=== PATIENT | female | born 1985 | race Caucasian/White ===

== ENCOUNTER 2017-07-04 15:58 | Emergency (ER) | payer BC ==
--- NOTE | 2017-07-04 16:20 | EDM.PDOC ---
ED HPI GENERAL MEDICAL PROBLEM - General Chief Complaint: Chest Pain Stated Complaint: CHEST PAIN Time Seen by Provider: 07/04/17 16:05 Source of Information: Reports: Patient History Limitations: Reports: No Limitations - History of Present Illness INITIAL COMMENTS - FREE TEXT/NARRATIVE: HISTORY AND PHYSICAL: History of present illness: Patient is a 32-year-old female who presents to the emergency room today with complaints of left-sided chest wall pain. She states approximately 3 or 4 days ago she started having left arm pain that started at the scapula and goes down the arm. Today she developed left upper chest wall pain which goes into the left shoulder and axilla which concerned her, so she presented to the emergency room. This chest pain does not radiate to the midsternum or into the back. She has been seeing a chiropractor for this left arm pain and has not had any relief. She states she has had multiple visits to a chiropractor for neck adjustments. She denies any associated symptoms such as shortness of breath, diaphoresis, nausea, vomiting. Denies any recent injury or trauma. Denies any personal history of cardiac or respiratory illness. Review of systems: As per history of present illness and below otherwise all systems reviewed and negative. Past medical history: As per history of present illness and as reviewed below otherwise noncontributory. Surgical history: As per history of present illness and as reviewed below otherwise noncontributory. Social history: No reported history of drug or alcohol abuse. Family history: As per history of present illness and as reviewed below otherwise noncontributory. Physical exam: Gen.: Well-developed and well-nourished 32-year-old female. Alert and oriented. HEENT: Atraumatic, normocephalic, pupils reactive, negative for conjunctival pallor or scleral icterus, mucous membranes moist, throat clear, neck supple, nontender, trachea midline. Lungs: Clear to auscultation, breath sounds equal bilaterally, chest nontender. Heart: S1S2, regular rate and rhythm without overt murmurs. Abdomen: Soft, nondistended, nontender. Negative for masses or hepatosplenomegaly. Negative for costovertebral tenderness. Pelvis: Stable nontender. Genitourinary: Deferred. Rectal: Deferred. Extremities: Atraumatic, moves all extremities per self with full range of motion without difficulty or deficit. Does have some muscular tenderness with deep palpation to the deltoid and trapezius muscle. She is negative for cords or calf pain. Neurovascular unremarkable. Neuro: Awake, alert, oriented. Cranial nerves II through XII unremarkable. Cerebellum unremarkable. Motor and sensory unremarkable throughout. Exam nonfocal. Although I do not feel that her symptoms are cardiac related, a cardiac workup is being done at this time. Patient voices understanding and is agreeable for this workup. EKG is normal with appropriate vital signs at this time. Lab work, EKG and chest x-ray are within normal limits. I will give the patient some Toradol as she is driving herself. We discussed treatment after discharge. Will prescribe a Medrol Dosepak, Voltaren, and Flexeril for home. We discussed the use and possible side effects of these medications. She voices understanding and is agreeable to plan of care. Will follow up with her primary caregiver in the next couple days. Diagnostics: CBC, CMP, troponin, EKG, one view chest Therapeutics: Toradol Impression: Muscular strain Chest pain, nonspecific Plan: 1. Please take the medications as prescribed. These symptoms along with her physical assessment or leg with a muscle spasm/strain of your shoulder/ trapezius. An anti-inflammatory has been prescribed, do not take any additional NSAIDs such as Aleve or ibuprofen with this medication. Medrol Dosepak is a steroid which will help with inflammation/irritation of nerves. Flexeril is a muscle relaxor which may make you drowsy, do not take it when you need to be functioning at work or with kids or when driving. 2. Follow-up with your primary caregiver in the next 1-2 days. Return to the ED as needed and as discussed. Definitive disposition and diagnosis as appropriate pending reevaluation and review of above. Onset: Today Associated Symptoms: Reports: Chest Pain (Left upper chest into the axilla and shoulder). Denies: Confusion, Cough, cough w sputum, Diaphoresis, Fever/Chills , Headaches, Loss of Appetite, Malaise, Nausea/Vomiting, Rash, Seizure, Shortness of Breath, Syncope, Weakness chest Pain Score (Numeric/FACES): 4 - Related Data Allergies Allergy/AdvReac Type Severity Reaction Status Date / Time No Known Allergies Allergy Verified 07/04/17 16:18 Home Meds: Home Meds Levothyroxine [Levothyroxine] 200 mcg PO DAILY 05/14/15 [History] Cyclobenzaprine [Flexeril] 10 mg PO BID PRN #16 tablet 07/04/17 [Rx] Diclofenac Sodium [Voltaren] 75 mg PO BIDMEALS PRN #20 tab.ec 07/04/17 [Rx] methylPREDNISolone [Medrol] 4 mg PO ASDIRECTED #1 dospk 07/04/17 [Rx] Past Medical History - Past Health History Medical/Surgical History: Denies 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 Sanon Neurological History: Reports: Migraines Endocrine/Metabolic History: Reports: Diabetes, Gestational Dermatologic History: Reports: Other (See Below) Other Dermatologic History: PUPS - Infectious Disease History Infectious Disease History: Reports: Chicken Pox, Scarlet Fever - Past Surgical History Other Female Surgeries/Procedures: spontaneous with retained product Social & Family History - Family History Cardiac: Reports: Angina, Hypertension, [place] - Tobacco Use Smoking Status *Q: Former Smoker Years of Tobacco use: 9 Packs/Tins Daily: 0.1 Used Tobacco, but Quit: Yes Month Tobacco Last Used: 07/2015 Second Hand Smoke Exposure: No - Alcohol Use Days Per Week of Alcohol Use: 0 - Recreational Drug Use Recreational Drug Use: No ED ROS GENERAL - Review of Systems Review Of Systems: ROS reveals no pertinent complaints other than HPI. ED EXAM, GENERAL - Physical Exam Exam: See Below (See dictation) Course - Vital Signs Last Recorded V/S: Last Vital Signs Temp 97.8 F 07/04/17 15:58 Pulse 95 07/04/17 15:58 Resp 18 07/04/17 15:58 BP 134/84 07/04/17 15:58 Pulse Ox 98 07/04/17 15:58 - Orders/Labs/Meds Orders: Active Orders 24 hr Category Date Time Status EKG Documentation Completion [RC] STAT Care 07/04/17 16:06 Active Chest 1V Frontal [CR] Stat Exams 07/04/17 16:06 Taken TSH [CHEM] Stat Lab 07/04/17 16:53 Ordered Labs: Laboratory Tests 07/04/17 07/04/17 Range/Units 16:01 16:01 WBC 11.81 H (4.0-11.0) K/uL RBC 4.73 (4.30-5.90) M/uL Hgb 14.1 (12.0-16.0) g/dL Hct 42.6 (36.0-46.0) % MCV 90.1 (80.0-98.0) fL MCH 29.8 (27.0-32.0) pg MCHC 33.1 (31.0-37.0) g/dL RDW Std Deviation 46.0 (28.0-62.0) fl RDW Coeff of Maribel 14 (11.0-15.0) % Plt Count 291 (150-400) K/uL MPV 10.50 (7.40-12.00) fL Neut % (Auto) 65.0 (48.0-80.0) % Lymph % (Auto) 26.5 (16.0-40.0) % [place] % (Auto) 6.4 (0.0-15.0) % Eos % (Auto) 1.8 (0.0-7.0) % Baso % (Auto) 0.3 (0.0-1.5) % Neut # (Auto) 7.7 H (1.4-5.7) K/uL Lymph # (Auto) 3.1 H (0.6-2.4) K/uL [place] # (Auto) 0.8 (0.0-0.8) K/uL Eos # (Auto) 0.2 (0.0-0.7) K/uL Baso # (Auto) 0.0 (0.0-0.1) K/uL Nucleated RBC % 0.0 /100WBC Nucleated RBCs # 0 K/uL Sodium 140 (136-146) mmol/L Potassium 3.8 (3.5-5.1) mmol/L Chloride 107 (98-110) mmol/L Carbon Dioxide 23 (21-31) mmol/L BUN 9 (6.0-23.0) mg/dL Creatinine 0.8 (0.6-1.5) mg/dL Est Cr Clr Drug Dosing TNP Estimated GFR (MDRD) > 60.0 ml/min Glucose 81 (60-110) mg/dL Calcium 10.1 (8.8-10.8) mg/dL Total Bilirubin 0.3 (0.1-1.5) mg/dL AST 18 (5-40) IU/L ALT 19 (8-54) IU/L Alkaline Phosphatase 67 (40-150) Troponin I < 0.10 (0.0-0.29) NG/ML Total Protein 8.3 H (6.0-8.0) g/dL Albumin 4.6 (3.5-5.0) g/dL Globulin 3.7 H (2.0-3.5) g/dL Albumin/Globulin Ratio 1.2 L (1.3-2.8) Meds: Medications Discontinued Medications Generic Name Dose Route Start Last Admin Trade Name Freq PRN Reason Stop Dose Admin Ketorolac Tromethamine 30 mg 07/04/17 16:52 Toradol IVPUSH 07/04/17 16:53 ONETIME ONE Departure - Departure Time of Disposition: 17:02 Disposition: Home, Self-Care 01 Clinical Impression: Nonspecific chest pain, Muscle strain - Discharge Information Prescriptions: Cyclobenzaprine [Flexeril] 10 mg PO BID PRN #16 tablet PRN Reason: Muscle Spasm Diclofenac Sodium [Voltaren] 75 mg PO BIDMEALS PRN #20 tab.ec PRN Reason: Pain methylPREDNISolone [Medrol] 4 mg PO ASDIRECTED #1 dospk Referrals: PCP,None [Primary Care Provider] - Forms: ED Department Discharge Additional Instructions: My general discharge The following information is given to patients seen in the emergency department who are being discharged to home. This information is to outline your options for follow-up care. We provide all patients seen in our emergency department with a follow-up referral. The need for follow-up, as well as the timing and circumstances, are variable depending upon the specifics of your emergency department visit. If you don't have a primary care physician on staff, we will provide you with a referral. We always advise you to contact your personal physician following an emergency department visit to inform them of the circumstance of the visit and for follow-up with them and/or the need for any referrals to a consulting specialist. The emergency department will also refer you to a specialist when appropriate. This referral assures that you have the opportunity for follow-up care with a specialist. All of these measure are taken in an effort to provide you with optimal care, which includes your follow-up. Under all circumstances we always encourage you to contact your private physician who remains a resource for coordinating your care. When calling for follow-up care, please make the office aware that this follow-up is from your recent emergency room visit. If for any reason you are refused follow-up, please contact the [facility] Emergency Department at and asked to speak to the emergency department charge nurse. [facility] [address] [place] [id number] 1. Please take the medications as prescribed. These symptoms along with her physical assessment or leg with a muscle spasm/strain of your shoulder/ trapezius. An anti-inflammatory has been prescribed, do not take any additional NSAIDs such as Aleve or ibuprofen with this medication. Medrol Dosepak is a steroid which will help with inflammation/irritation of nerves. Flexeril is a muscle relaxor which may make you drowsy, do not take it when you need to be functioning at work or with kids or when driving. These medications have been sent to pharmacy and are available for pickup. 2. Follow-up with your primary caregiver in the next 1-2 days. Return to the ED as needed and as discussed. - My Orders Last 24 Hours: My Active Orders 07/04/17 16:06 EKG Documentation Completion [RC] STAT Chest 1V Frontal [CR] Stat 07/04/17 16:53 TSH [CHEM] Stat - Assessment/Plan Last 24 Hours: My Active Orders 07/04/17 16:06 EKG Documentation Completion [RC] STAT Chest 1V Frontal [CR] Stat 07/04/17 16:53 TSH [CHEM] Stat
[2017-07-04 16:39] LABS: CHLORIDE,CL 107 mmol/L (98-110); SODIUM,NA 140 mmol/L (136-146)
[2017-07-04] MEDS ORDERED: Ketorolac 30 MG/ML SDV IVPUSH ONE (16:52)
[2017-07-04 17:55] VITALS: BP 120/80
--- NOTE | 2017-07-05 09:06 | CR ---
EXAM DATE: 07/04/17 PATIENT'S AGE: 32 Patient: ALYSSA TAVAREZ Facility: [place], [place] Site . Site : 1985 Study: XRay Chest [id number]/20/2017 4:29:51 PM Ordering Physician: Doctor Krishnan Final Report: HISTORY: Chest pain. FINDINGS: AP portable chest radiograph demonstrates EKG leads overlie the thorax. The cardiac silhouette is normal. Pulmonary vasculature and opal are normal. No lobar consolidation or pleural effusion is seen. Bony structures are unremarkable. IMPRESSION: No acute cardiopulmonary disease. Dictated by Martha Hess MD @ 07/04/2017 4:46:14 PM Dictated by: Martha Hess MD @ 07/04/2017 16:46:21 (Electronic Signature) Report Signed by Proxy. [facility]
== END 2017-07-04 17:52 | disposition home or self-care (01) ==
LOC: MW.ED 15:58
DX: S46.812A Strain of other muscles, fascia and tendons at shoulder and upper arm level, left arm, initial encounter (principal); S29.012A Strain of muscle and tendon of back wall of thorax, initial encounter; R07.89 Other chest pain; Z79.899 Other long term (current) drug therapy; X58.XXXA Exposure to other specified factors, initial encounter; Z87.891 Personal history of nicotine dependence
CPT/HCPCS: 36415; 71010; 80053; 84443; 84484; 85025; 96374; 99285; J1885; 99283

== ENCOUNTER 2017-09-06 20:47 | Emergency (ER) | payer BC ==
--- NOTE | 2017-09-06 20:51 | EDM.PDOC ---
ED HPI GENERAL MEDICAL PROBLEM - General Stated Complaint: CHEST PAIN Time Seen by Provider: 09/06/17 20:50 Source of Information: Reports: Patient History Limitations: Reports: No Limitations - History of Present Illness INITIAL COMMENTS - FREE TEXT/NARRATIVE: HISTORY AND PHYSICAL: History of present illness: Patient is a 32-year-old female who presents to the emergency room today with complaints of midsternal chest pain 2 months. She states that she has intermittent chest pain that goes up the esophagus with some nausea and "tingling down the left arm". She states nothing precipitates this from occurring. Nothing makes this better or worse. She reports she has doctored for this in the past and was told it was muscular strain/spasm. Denies any abdominal pain, vomiting, diarrhea/constipation. Review of systems: As per history of present illness and below otherwise all systems reviewed and negative. Past medical history: As per history of present illness and as reviewed below otherwise noncontributory. Surgical history: As per history of present illness and as reviewed below otherwise noncontributory. Social history: No reported history of drug or alcohol abuse. Family history: As per history of present illness and as reviewed below otherwise noncontributory. Physical exam: General: Well developed and well-nourished 32-year-old female. Alert and oriented. Nontoxic appearing and in no acute distress. HEENT: Atraumatic, normocephalic, pupils reactive, negative for conjunctival pallor or scleral icterus, mucous membranes moist, throat clear, neck supple, nontender, trachea midline. Lungs: Clear to auscultation, breath sounds equal bilaterally, chest nontender. Heart: S1S2, regular rate and rhythm Abdomen: Soft, nondistended, obese, nontender. Negative for masses or hepatosplenomegaly. Negative for costovertebral tenderness. Pelvis: Stable nontender. Genitourinary: Deferred. Rectal: Deferred. Extremities: Atraumatic, negative for cords or calf pain. Neurovascular unremarkable. Neuro: Awake, alert, oriented. Cranial nerves II through XII unremarkable. Cerebellum unremarkable. Motor and sensory unremarkable throughout. Exam nonfocal. CBC, CMP, troponin, EKG, serum are negative. Chest x-ray shows no acute findings, infiltrates or pneumonia. Did have some relief with the GI cocktail. Encouraged her to start an [id number] antacid/PPI. Diagnostics: CBC, CMP, troponin, EKG, one view chest Therapeutics: GI cocktail Impression: Chest pain, nonspecific GERD Plan: 1. Please start Protonix once daily before breakfast 2. Please follow-up with your medical provider in the next 1-2 days. Return to the ED as needed and as discussed. Definitive disposition and diagnosis as appropriate pending reevaluation and review of above. 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 Sanon Neurological History: Reports: Migraines Endocrine/Metabolic History: Reports: Diabetes, Gestational Dermatologic History: Reports: Other (See Below) Other Dermatologic History: PUPS - Infectious Disease History Infectious Disease History: Reports: Chicken Pox, Scarlet Fever - Past Surgical History Other Female Surgeries/Procedures: spontaneous with retained product Social & Family History - Family History Family Medical History: Noncontributory Cardiac: Reports: Angina, Hypertension, [place] - Tobacco Use Smoking Status *Q: Former Smoker Years of Tobacco use: 9 Packs/Tins Daily: 0.1 Used Tobacco, but Quit: Yes Month Tobacco Last Used: 07/2015 Second Hand Smoke Exposure: No - Alcohol Use Days Per Week of Alcohol Use: 0 - Recreational Drug Use Recreational Drug Use: No ED ROS GENERAL - Review of Systems Review Of Systems: ROS reveals no pertinent complaints other than HPI. ED EXAM, GENERAL - Physical Exam Exam: See Below (See dictation) Course - Vital Signs Last Recorded V/S: Last Vital Signs Temp 97.2 F 09/06/17 20:50 Pulse 89 09/06/17 20:50 Resp 18 09/06/17 20:50 BP 147/77 H 09/06/17 20:50 Pulse Ox 98 09/06/17 20:50 - Orders/Labs/Meds Orders: Active Orders 24 hr Category Date Time Status EKG 12 Lead [EKG Documentation Completion] [RC] STAT Care 09/06/17 20:49 Active Chest 1V Frontal [CR] Stat Exams 09/06/17 20:49 Ordered COMPREHENSIVE METABOLIC PN,CMP [CHEM] Stat Lab 09/06/17 20:55 Results TROPONIN I [CHEM] Stat Lab 09/06/17 20:55 Results Labs: Laboratory Tests 09/06/17 09/06/17 09/06/17 Range/Units 20:55 20:55 20:55 WBC 8.95 (4.0-11.0) K/uL RBC 4.61 (4.30-5.90) M/uL Hgb 13.6 (12.0-16.0) g/dL Hct 41.1 (36.0-46.0) % MCV 89.2 (80.0-98.0) fL MCH 29.5 (27.0-32.0) pg MCHC 33.1 (31.0-37.0) g/dL RDW Std Deviation 41.3 (28.0-62.0) fl RDW Coeff of Maribel 13 (11.0-15.0) % Plt Count 293 (150-400) K/uL MPV 10.20 (7.40-12.00) fL Neut % (Auto) 58.5 (48.0-80.0) % Lymph % (Auto) 33.1 (16.0-40.0) % [place] % (Auto) 5.7 (0.0-15.0) % Eos % (Auto) 2.1 (0.0-7.0) % Baso % (Auto) 0.6 (0.0-1.5) % Neut # (Auto) 5.2 (1.4-5.7) K/uL Lymph # (Auto) 3.0 H (0.6-2.4) K/uL [place] # (Auto) 0.5 (0.0-0.8) K/uL Eos # (Auto) 0.2 (0.0-0.7) K/uL Baso # (Auto) 0.1 (0.0-0.1) K/uL Nucleated RBC % 0.0 /100WBC Nucleated RBCs # 0 K/uL Sodium 140 (136-146) mmol/L Potassium 4.0 (3.5-5.1) mmol/L Chloride 107 (98-110) mmol/L Carbon Dioxide 23 (21-31) mmol/L BUN 13 (6.0-23.0) mg/dL Creatinine 0.7 (0.6-1.5) mg/dL Est Cr Clr Drug Dosing TNP Estimated GFR (MDRD) > 60.0 ml/min Glucose 97 (60-110) mg/dL Calcium 9.9 (8.8-10.8) mg/dL Total Bilirubin 0.2 (0.1-1.5) mg/dL AST 13 (5-40) IU/L ALT 17 (8-54) IU/L Alkaline Phosphatase 62 (40-150) Total Protein 7.4 (6.0-8.0) g/dL Albumin 4.3 (3.5-5.0) g/dL Globulin 3.1 (2.0-3.5) g/dL Albumin/Globulin Ratio 1.4 (1.3-2.8) HCG, Qual NEGATIVE (NEG) H. pylori IgG Antibody NEGATIVE (NEG) Meds: Medications Discontinued Medications Generic Name Dose Route Start Last Admin Trade Name Freq PRN Reason Stop Dose Admin Al Hydroxide/Mg Hydroxide 15 0 ml 09/06/17 20:56 09/06/17 21:05 ml/ Lidocaine HCl 5 ml PO 09/06/17 20:57 1 each ONETIME ONE Administration Departure - Departure Time of Disposition: 21:34 Disposition: Home, Self-Care 01 Clinical Impression: Nonspecific chest pain GERD (gastroesophageal reflux disease) Qualifiers: Esophagitis presence: without esophagitis Qualified Code(s): K21.9 - Gastro- esophageal reflux disease without esophagitis Referrals: PCP,None [Primary Care Provider] - Additional Instructions: My general discharge The following information is given to patients seen in the emergency department who are being discharged to home. This information is to outline your options for follow-up care. We provide all patients seen in our emergency department with a follow-up referral. The need for follow-up, as well as the timing and circumstances, are variable depending upon the specifics of your emergency department visit. If you don't have a primary care physician on staff, we will provide you with a referral. We always advise you to contact your personal physician following an emergency department visit to inform them of the circumstance of the visit and for follow-up with them and/or the need for any referrals to a consulting specialist. The emergency department will also refer you to a specialist when appropriate. This referral assures that you have the opportunity for follow-up care with a specialist. All of these measure are taken in an effort to provide you with optimal care, which includes your follow-up. Under all circumstances we always encourage you to contact your private physician who remains a resource for coordinating your care. When calling for follow-up care, please make the office aware that this follow-up is from your recent emergency room visit. If for any reason you are refused follow-up, please contact the [facility] Emergency Department at and asked to speak to the emergency department charge nurse. [facility] [address] [place] [address] 1. Please start Protonix 40 mg once daily 30 minutes before breakfast. 2. Please follow-up with your medical provider in the next 1-2 days. Return to the ED as needed and as discussed. - My Orders Last 24 Hours: My Active Orders 09/06/17 20:49 EKG 12 Lead [EKG Documentation Completion] [RC] STAT Chest 1V Frontal [CR] Stat 09/06/17 20:55 COMPREHENSIVE METABOLIC PN,CMP [CHEM] Stat TROPONIN I [CHEM] Stat - Assessment/Plan Last 24 Hours: My Active Orders 09/06/17 20:49 EKG 12 Lead [EKG Documentation Completion] [RC] STAT Chest 1V Frontal [CR] Stat 09/06/17 20:55 COMPREHENSIVE METABOLIC PN,CMP [CHEM] Stat TROPONIN I [CHEM] Stat
[2017-09-06] MEDS ORDERED: Alum Hydrox/Mag Hydrox/Simeth 15 ML, Lidocaine 2% 5 ML PO ONE ×2 (20:56)
[2017-09-06 21:27] LABS: CHLORIDE,CL 107 mmol/L (98-110); SODIUM,NA 140 mmol/L (136-146)
[2017-09-06 22:22] VITALS: BP 104/75
--- NOTE | 2017-09-07 16:00 | CR ---
EXAM DATE: 09/06/17 PATIENT'S AGE: 32 Patient: ALYSSA TAVAREZ Facility: [place], [place] Site . Site : 1985 Study: XRay Chest [id number]/22/2018 9:38:15 PM Ordering Physician: Doctor Krishnan Final Report: HISTORY: Chest pain. FINDINGS: AP portable chest radiograph is compared with 04 July 2017. The cardiac silhouette is normal. Pulmonary vasculature is free of cephalization. No lobar consolidation or pleural effusion is seen. Bony structures are within normal limits. IMPRESSION: No acute cardiopulmonary disease. Dictated by Martha Hess MD @ 09/06/2017 9:43:21 PM Dictated by: Martha Hess MD @ 09/06/2017 21:43:53 (Electronic Signature) Report Signed by Proxy. [facility]
== END 2017-09-06 22:21 | disposition home or self-care (01) ==
LOC: MW.ED 20:47
DX: K21.9 Gastro-esophageal reflux disease without esophagitis (principal); Z79.899 Other long term (current) drug therapy; Z87.891 Personal history of nicotine dependence
CPT/HCPCS: 36415; 71045; 80053; 84484; 84703; 85025; 86677; 99285; A9270; 99284

== ENCOUNTER 2018-04-11 18:18 | Emergency (ER) | payer BC ==
--- NOTE | 2018-04-11 19:06 | EDM.PDOC ---
ED HPI GENERAL MEDICAL PROBLEM - General Chief Complaint: ENT Problem Stated Complaint: RT SIDE OF FACE IS SWOLLON AND EYE IS TWITCHING Time Seen by Provider: 04/11/18 19:05 Source of Information: Reports: Patient History Limitations: Reports: No Limitations - History of Present Illness INITIAL COMMENTS - FREE TEXT/NARRATIVE: HISTORY AND PHYSICAL: History of present illness: 32-year-old female presenting to emergency department with chief complaint of right facial swelling and pain 4 days. Patient states that on Sunday approximate 4 days ago she noticed that she had some mild right facial swelling. States that she saw her chiropractor that afternoon and had her neck adjusted but does not know if it's related. Today one of her coworkers mentioned that her right jaw looked swollen so she came to the emergency department for further evaluation. She denies any associated fever , chills, abdominal pain, dysuria, or other signs of systemic infection. She does have a mild sore throat and some associated nausea today. She does have a history of chronic neck pain as well as history of unexplained lightheadedness which has been investigated by her primary care provider Dr. Mccarthy. Currently she denies any chest pain, palpitations, shortness of breath, syncopal episodes , focal neurologic deficits. On exam there is mild right-sided facial swelling along the jawline with associated submandibular painful lymphadenopathy. It is tender to palpation. On oral exam tooth #31 has poor dentition with surrounding erythema. Bilateral tonsils and posterior pharynx are erythematous and mildly swollen. Review of systems: As per history of present illness and below otherwise all systems reviewed and negative. Past medical history: As per history of present illness and as reviewed below otherwise noncontributory. Surgical history: As per history of present illness and as reviewed below otherwise noncontributory. Social history: No reported history of drug or alcohol abuse. Family history: As per history of present illness and as reviewed below otherwise noncontributory. Physical exam: See above H&P HEENT: Atraumatic, normocephalic, pupils reactive, negative for conjunctival pallor or scleral icterus, mucous membranes moist, mild swelling and erythema, neck supple, nontender, trachea midline. Lungs: Clear to auscultation, breath sounds equal bilaterally, chest nontender. Heart: S1S2, regular, negative for clicks, rubs, or JVD. Abdomen: Soft, nondistended, nontender. Negative for masses or hepatosplenomegaly. Negative for costovertebral tenderness. Pelvis: Stable nontender. Genitourinary: Deferred. Rectal: Deferred. Extremities: Atraumatic, negative for cords or calf pain. Neurovascular unremarkable. Neuro: Awake, alert, oriented. Cranial nerves II through XII unremarkable. Cerebellum unremarkable. Motor and sensory unremarkable throughout. Exam nonfocal. Diagnostics: Rapid strep Therapeutics: Augmentin 875 mg x 7 days Impression: right jaw pain right jaw swelling Dental abscess Plan: Rapid strep was negative. Most likely patient has beginnings of a dental abscess. Did give the patient a prescription for Augmentin and instructed her to follow-up with her dentist. In addition I did give her dental balls for symptomatically relief. Instructed her to follow-up with her primary care provider and return to emergency department if any new or worsening symptoms. Definitive disposition and diagnosis as appropriate pending reevaluation and review of above. 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 Sanon Musculoskeletal History: Reports: None Neurological History: Reports: Migraines Psychiatric History: Reports: Anxiety Endocrine/Metabolic History: Reports: Diabetes, Gestational Hematologic History: Reports: None Immunologic History: Reports: None Oncologic (Cancer) History: Reports: None Dermatologic History: Reports: Other (See Below) Other Dermatologic History: PUPS - Infectious Disease History Infectious Disease History: Reports: Chicken Pox - Past Surgical History Head Surgeries/Procedures: Reports: None Other Female Surgeries/Procedures: spontaneous with retained product Social & Family History - Family History Family Medical History: Noncontributory Cardiac: Reports: Angina, Hypertension, [place] - Tobacco Use Smoking Status *Q: Current Every Day Smoker Years of Tobacco use: 8 Packs/Tins Daily: 0.5 - Caffeine Use Caffeine Use: Reports: Coffee, Soda, Tea - Recreational Drug Use Recreational Drug Use: No ED ROS GENERAL - Review of Systems Review Of Systems: ROS reveals no pertinent complaints other than HPI. ED EXAM, GENERAL - Physical Exam Exam: See Below Course - Vital Signs Last Recorded V/S: Last Vital Signs Temp 98.1 F 04/11/18 18:46 Pulse 93 04/11/18 18:46 Resp 20 04/11/18 18:46 BP 124/83 04/11/18 18:46 Pulse Ox 96 04/11/18 18:46 - Orders/Labs/Meds Orders: Active Orders 24 hr Category Date Time Status CULTURE STREP A CONFIRMATION [] Stat Lab 04/11/18 19:36 Results STREP SCRN A RAPID W CULT CONF [RM] Stat Lab 04/11/18 19:36 Results Meds: Medications Discontinued Medications Generic Name Dose Route Start Last Admin Trade Name Freq PRN Reason Stop Dose Admin Benzocaine 2 each 04/11/18 19:28 Hurricaine One 20% MUCMEM 04/11/18 19:29 ONETIME ONE Lidocaine HCl 15 ml 04/11/18 19:28 Xylocaine 2% Viscous PO 04/11/18 19:29 ONETIME ONE Departure - Departure Time of Disposition: 20:01 Disposition: Home, Self-Care 01 Condition: Good Clinical Impression: Dental abscess - Discharge Information Referrals: PCP,None [Primary Care Provider] - Forms: ED Department Discharge Additional Instructions: My general discharge The following information is given to patients seen in the emergency department who are being discharged to home. This information is to outline your options for follow-up care. We provide all patients seen in our emergency department with a follow-up referral. The need for follow-up, as well as the timing and circumstances, are variable depending upon the specifics of your emergency department visit. If you don't have a primary care physician on staff, we will provide you with a referral. We always advise you to contact your personal physician following an emergency department visit to inform them of the circumstance of the visit and for follow-up with them and/or the need for any referrals to a consulting specialist. The emergency department will also refer you to a specialist when appropriate. This referral assures that you have the opportunity for follow-up care with a specialist. All of these measure are taken in an effort to provide you with optimal care, which includes your follow-up. Under all circumstances we always encourage you to contact your private physician who remains a resource for coordinating your care. When calling for follow-up care, please make the office aware that this follow-up is from your recent emergency room visit. If for any reason you are refused follow-up, please contact the [facility] Emergency Department at and asked to speak to the emergency department charge nurse. [facility] Primary Care [address] [place] [phone] Please follow-up with your dentist as we discussed. Take medication as prescribed. Return to emergency department if any new or worsening symptoms as we discussed. - My Orders Last 24 Hours: My Active Orders 04/11/18 19:36 CULTURE STREP A CONFIRMATION [RM] Stat STREP SCRN A RAPID W CULT CONF [RM] Stat - Assessment/Plan Last 24 Hours: My Active Orders 04/11/18 19:36 CULTURE STREP A CONFIRMATION [RM] Stat STREP SCRN A RAPID W CULT CONF [RM] Stat
[2018-04-11] MEDS ORDERED: Lidocaine 2% Viscous Solution 15 ML Cup PO ONE (19:28)
[2018-04-11] MEDS ORDERED: Benzocaine 20% Topical Spray UD MUCMEM ONE (19:28)
[2018-04-11 20:01] VITALS: BP 140/91
== END 2018-04-11 20:09 | disposition home or self-care (01) ==
LOC: MW.ED 18:18
DX: K04.7 Periapical abscess without sinus (principal); F17.210 Nicotine dependence, cigarettes, uncomplicated
CPT/HCPCS: 87081; 87880; 99283; A9270

== ENCOUNTER 2019-01-25 19:17 | Emergency (ER) | payer BC ==
[2019-01-25] MEDS ORDERED: Sodium Chloride 0.9% 10 ML Syringe FLUSH PRN (19:44)
[2019-01-25] MEDS ORDERED: Sodium Chloride 0.9% 2.5 ML Syringe FLUSH PRN (19:44)
--- NOTE | 2019-01-25 19:48 | EDM.PDOC ---
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 Walker in the office who presented earlier today with cramping and bleeding that started earlier this morning. The patient was seen about 9:30 this morning and had said at that time she was cramping and having some spotting and then on the way here to the ER started passing clots and large amount of blood and in the ED was having heavy bleeding. Labs were done which revealed a hemoglobin of 13.6, A+ blood type and a serum quantitative hCG of 31,000 525. Ultrasound was done which revealed no intrauterine or ectopic and there was mild thickening of the endometrial stripe with no endometrial fluid collections. Dr. Walker was consulted via phone by the provider and he recommended a dose of Methergine which was given. According to the provider he was aware of the heavy bleeding. Patient now presents to the ED saying that after she received a Methergine here the bleeding did slow down and she was feeling less uncomfortable and then a few hours ago she started bleeding heavily again using 2 pads per hour and passing numerous clots. She says she is still having cramping but it is manageable. The patient says that she feels lightheaded but she is not passing out and she has no chest pain or shortness of breath. She is not having any upper abdominal pain just the pelvic cramping which she had earlier and she has no flank pain. Review of systems: As per history of present illness and below otherwise all systems reviewed and negative. Past medical history: As per history of present illness and as reviewed below otherwise noncontributory. Surgical history: As per history of present illness and as reviewed below otherwise noncontributory. Social history: No reported history of drug or alcohol abuse. Family history: As per history of present illness and as reviewed below otherwise noncontributory. Physical exam: General: Well-developed well-nourished female who is nontoxic and vital signs are noted by me, on my evaluation her heart rate is 126 and in triage it was 136. HEENT: Atraumatic, normocephalic, pupils reactive, negative for conjunctival pallor or scleral icterus, mucous membranes moist, throat clear, neck supple, nontender, trachea midline. Lungs: Clear to auscultation, breath sounds equal bilaterally, chest nontender. Heart: S1S2, regular rhythm and tachycardic rate on my evaluation no overt murmurs Abdomen: Soft, nondistended, some mild suprapubic tenderness is appreciated without rebound or guarding Negative for masses or hepatosplenomegaly. Pelvis: Stable nontender. Genitourinary: External genitalia are within normal limits and there is copious blood and clots in the vault. Once the clots were cleared proximal of conception could clearly be seen filling the vaginal vault emerging from the cervix. These were gently teased loose and placed in a specimen cup. Once all tissue was removed cervix was reevaluated and now is small and closed and there is only a slight trickle of blood per os. The uterus is slightly bulky but nontender and there is no adnexal tenderness. The bimanual is difficult due to the patient's body habitus. Rectal: Deferred. Extremities: Atraumatic, full range of motion and no pedal edema. Neurovascular unremarkable. Neuro: Awake, alert, oriented. Cranial nerves II through XII unremarkable. Cerebellum unremarkable. Motor and sensory unremarkable throughout. Exam nonfocal. Diagnostics: CBC, products of conception to pathology Earlier a quantitative hCG was done which was 31,525 and her blood type is a positive Therapeutics: IV fluids, Methergine IM per Dr. Walker, Toradol Patient's heart rate is improving with IV fluids and is now 113 Please see exam above for removal of products of conception at bedside. 2021: Case was discussed with Dr. Walker and he is aware of the patient's presentation and my physical exam. As the os is now closed he would like another dose of Methergine 0.2 mg IM to be given and he would like her to be watched here for bleeding and resolution of her tachycardia. He is aware of the CBC results compared to earlier. The patient is also been made aware of this conversation and the care plan. She is comfortable with that Patient continues to do well and has just finished her second liter of IV fluids. I given her some Toradol for some cramping. We are going to get her up and assess her bleeding and discuss disposition home. 2124: Heart rate is now 98-99 and the patient got up and did have some bleeding going to the bathroom but is not passing significant blood or clots. We'll plan on discharge home. Impression: Complete AB Definitive disposition and diagnosis as appropriate pending reevaluation and review of above. 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 incompetent cervix Musculoskeletal History: Reports: None Neurological History: Reports: Migraines Psychiatric History: Reports: Anxiety Endocrine/Metabolic History: Reports: Diabetes, Gestational Hematologic History: Reports: None Immunologic History: Reports: None Oncologic (Cancer) History: Reports: None Dermatologic History: Reports: Other (See Below) Other Dermatologic History: PUPS - Infectious Disease History Infectious Disease History: Reports: Chicken Pox - Past Surgical History Head Surgeries/Procedures: Reports: None Other Female Surgeries/Procedures: spontaneous with retained product Social & Family History - Family History Family Medical History: Noncontributory Cardiac: Reports: Angina, Hypertension, [place] - Caffeine Use Caffeine Use: Reports: Coffee, Soda, Tea ED ROS GENERAL - Review of Systems Review Of Systems: ROS reveals no pertinent complaints other than HPI. ED EXAM, GENERAL - Physical Exam Exam: See Below (See dictation) Course - Vital Signs Last Recorded V/S: Last Vital Signs Temp 36.9 C 01/25/19 20:30 Pulse 98 01/25/19 21:13 Resp 18 01/25/19 21:13 BP 126/72 01/25/19 21:13 Pulse Ox 100 01/25/19 21:13 - Orders/Labs/Meds Orders: Active Orders 24 hr Category Date Time Status Sodium Chloride 0.9% [Normal Saline] 1,000 ml Med 01/25/19 20:36 Active IV .Bolus Sodium Chloride 0.9% [Saline Flush] Med 01/25/19 19:44 Active 10 ml FLUSH ASDIRECTED PRN Sodium Chloride 0.9% [Saline Flush] Med 01/25/19 19:44 Active 2.5 ml FLUSH ASDIRECTED PRN Saline Lock Insert [OM.PC] Stat Oth 01/25/19 19:44 Ordered Medication Orders Sodium Chloride (Normal Saline) 1,000 mls @ 999 mls/hr IV .Bolus ONE Stop: 01/25/19 21:36 Last Admin: 01/25/19 20:38 Dose: 999 mls/hr Sodium Chloride (Saline Flush) 10 ml FLUSH ASDIRECTED PRN PRN Reason: Keep Vein Open Sodium Chloride (Saline Flush) 2.5 ml FLUSH ASDIRECTED PRN PRN Reason: Keep Vein Open Labs: Laboratory Tests 01/25/19 Range/Units 19:54 WBC 11.84 H (4.0-11.0) K/uL RBC 3.78 L (4.30-5.90) M/uL Hgb 10.9 L (12.0-16.0) g/dL Hct 33.3 L (36.0-46.0) % MCV 88.1 (80.0-98.0) fL MCH 28.8 (27.0-32.0) pg MCHC 32.7 (31.0-37.0) g/dL RDW Std Deviation 44.8 (28.0-62.0) fl RDW Coeff of Maribel 14 (11.0-15.0) % Plt Count 334 (150-400) K/uL MPV 10.00 (7.40-12.00) fL Neut % (Auto) 78.2 (48.0-80.0) % Lymph % (Auto) 15.7 L (16.0-40.0) % [place] % (Auto) 3.2 (0.0-15.0) % Eos % (Auto) 2.8 (0.0-7.0) % Baso % (Auto) 0.1 (0.0-1.5) % Neut # (Auto) 9.3 H (1.4-5.7) K/uL Lymph # (Auto) 1.9 (0.6-2.4) K/uL [place] # (Auto) 0.4 (0.0-0.8) K/uL Eos # (Auto) 0.3 (0.0-0.7) K/uL Baso # (Auto) 0.0 (0.0-0.1) K/uL Nucleated RBC % 0.0 /100WBC Nucleated RBCs # 0 K/uL Meds: Medications Generic Name Dose Route Start Last Admin Trade Name Freq PRN Reason Stop Dose Admin Sodium Chloride 1,000 mls @ 999 mls/hr 01/25/19 20:36 01/25/19 20:38 Normal Saline IV 01/25/19 21:36 999 mls/hr .Bolus ONE Administration Sodium Chloride 10 ml 01/25/19 19:44 Saline Flush FLUSH ASDIRECTED PRN Keep Vein Open Sodium Chloride 2.5 ml 01/25/19 19:44 Saline Flush FLUSH ASDIRECTED PRN Keep Vein Open Discontinued Medications Generic Name Dose Route Start Last Admin Trade Name Freq PRN Reason Stop Dose Admin Sodium Chloride 1,000 mls @ 999 mls/hr 01/25/19 19:57 01/25/19 20:05 Normal Saline IV 01/25/19 20:57 999 mls/hr STAT ONE Administration Ketorolac Tromethamine 30 mg 01/25/19 21:05 01/25/19 21:10 Toradol IVPUSH 01/25/19 21:06 30 mg ONETIME ONE Administration Methylergonovine Maleate 0.2 mg 01/25/19 20:26 01/25/19 20:46 Methergine IM 01/25/19 20:27 0.2 mg ONETIME ONE Administration Departure - Departure Time of Disposition: 21:27 Disposition: Home, Self-Care 01 Condition: Good Clinical Impression: Complete - Discharge Information Referrals: PCP,None [Primary Care Provider] - Forms: ED Department Discharge Additional Instructions: The following information is given to patients seen in the emergency department who are being discharged to home. This information is to outline your options for follow-up care. We provide all patients seen in our emergency department with a follow-up referral. The need for follow-up, as well as the timing and circumstances, are variable depending upon the specifics of your emergency department visit. If you don't have a primary care physician on staff, we will provide you with a referral. We always advise you to contact your personal physician following an emergency department visit to inform them of the circumstance of the visit and for follow-up with them and/or the need for any referrals to a consulting specialist. The emergency department will also refer you to a specialist when appropriate. This referral assures that you have the opportunity for followup care with a specialist. All of these measure are taken in an effort to provide you with optimal care, which includes your followup. Under all circumstances we always encourage you to contact your private physician who remains a resource for coordinating your care. When calling for followup care, please make the office aware that this follow-up is from your recent emergency room visit. If for any reason you are refused follow-up, please contact the [facility] emergency department at and ask to speak to the emergency department charge nurse. [facility] [address] [address] Rest and push hydration. Use [id number] meds for cramping and pain as you choose. Please continue to monitor your bleeding and connect with Dr. Walker for any problems or return to ER as needed and as discussed. Please also call the office on Sunday morning to schedule a follow-up appointment with Dr. Walker. Expect bleeding and some clots for the next 1-2 days which should slowly be improving - My Orders Last 24 Hours: My Active Orders 01/25/19 19:44 Sodium Chloride 0.9% [Saline Flush] 10 ml FLUSH ASDIRECTED PRN Sodium Chloride 0.9% [Saline Flush] 2.5 ml FLUSH ASDIRECTED PRN Saline Lock Insert [OM.PC] Stat 01/25/19 20:36 Sodium Chloride 0.9% [Normal Saline] 1,000 ml IV .Bolus - Assessment/Plan Last 24 Hours: My Active Orders 01/25/19 19:44 Sodium Chloride 0.9% [Saline Flush] 10 ml FLUSH ASDIRECTED PRN Sodium Chloride 0.9% [Saline Flush] 2.5 ml FLUSH ASDIRECTED PRN Saline Lock Insert [OM.PC] Stat 01/25/19 20:36 Sodium Chloride 0.9% [Normal Saline] 1,000 ml IV .Bolus
[2019-01-25] MEDS ORDERED: Sodium Chloride 0.9% 1,000 ML IV ONE ×2 (19:57→20:36)
[2019-01-25] MEDS ORDERED: Methylergonovine 0.2 MG/1 ML Amp IM ONE (20:26)
[2019-01-25] MEDS ORDERED: Ketorolac 30 MG/ML SDV IVPUSH ONE (21:05)
[2019-01-25 21:27] VITALS: BP 102/52
== END 2019-01-25 21:36 | disposition home or self-care (01) ==
LOC: MW.ED 19:17
DX: O03.9 Complete or unspecified spontaneous abortion without complication (principal); Z79.899 Other long term (current) drug therapy
CPT/HCPCS: 36415; 85025; 96361; 96372; 96374; 99284; J1885; J2210; J7040; 76815; 76815-26; 84702; 86900; 86901; 88305; 96360

== ENCOUNTER 2019-02-02 22:10 | Emergency (ER) | payer BC ==
[2019-02-02] MEDS ORDERED: Ketorolac 30 MG/ML SDV IVPUSH ONE (22:14)
--- NOTE | 2019-02-02 22:23 | EDM.PDOC ---
ED HPI GENERAL MEDICAL PROBLEM - General Chief Complaint: Chest Pain Stated Complaint: CHEST PAIN Time Seen by Provider: 02/02/19 22:18 - History of Present Illness INITIAL COMMENTS - FREE TEXT/NARRATIVE: HISTORY AND PHYSICAL: History of present illness: Patient 33-year-old female presents with chest pain she had a recent miscarriage and was also evaluated recently for lower leg pain and had a venous Doppler that was negative on January 29. There's been no associated shortness of breath palpitations or diaphoresis she does complain of chest pain is vaguely described with associated left arm pain she does acknowledge anxiety. Review of systems: As per history of present illness and below otherwise all systems reviewed and negative. Past medical history: As per history of present illness and as reviewed below otherwise noncontributory. Surgical history: As per history of present illness and as reviewed below otherwise noncontributory. Social history: No reported history of drug or alcohol abuse. Family history: As per history of present illness and as reviewed below otherwise noncontributory. Physical exam: HEENT: Atraumatic, normocephalic, pupils reactive, negative for conjunctival pallor or scleral icterus, mucous membranes moist, throat clear, neck supple, nontender, trachea midline. Lungs: Clear to auscultation, breath sounds equal bilaterally, chest nontender. Heart: S1S2, regular, negative for clicks, rubs, or JVD. Abdomen: Soft, nondistended, nontender. Negative for masses or hepatosplenomegaly. Negative for costovertebral tenderness. Pelvis: Stable nontender. Genitourinary: Deferred. Rectal: Deferred. Extremities: Atraumatic, negative for cords or calf pain. Neurovascular unremarkable. Neuro: Awake, alert, oriented. Cranial nerves II through XII unremarkable. Cerebellum unremarkable. Motor and sensory unremarkable throughout. Exam nonfocal. Diagnostics: CBC CMP's troponin PT/INR chest x-ray EKG Therapeutics: IV O2 monitor Impression: #1 atypical chest pain Definitive disposition and diagnosis as appropriate pending reevaluation and review of above. 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 incompetent cervix Musculoskeletal History: Reports: None Neurological History: Reports: Migraines Psychiatric History: Reports: Anxiety Endocrine/Metabolic History: Reports: Diabetes, Gestational Hematologic History: Reports: None Immunologic History: Reports: None Oncologic (Cancer) History: Reports: None Dermatologic History: Reports: Other (See Below) Other Dermatologic History: PUPS - Infectious Disease History Infectious Disease History: Reports: Chicken Pox - Past Surgical History Head Surgeries/Procedures: Reports: None Other Female Surgeries/Procedures: spontaneous with retained product Social & Family History - Family History Family Medical History: Noncontributory Cardiac: Reports: Angina, Hypertension, [place] - Caffeine Use Caffeine Use: Reports: Coffee, Soda, Tea ED ROS GENERAL - Review of Systems Review Of Systems: ROS reveals no pertinent complaints other than HPI. ED EXAM, GENERAL - Physical Exam Exam: See Below (See dictation) Course - Vital Signs Last Recorded V/S: Last Vital Signs Temp 36.4 C 02/02/19 23:02 Pulse 125 H 02/02/19 23:02 Resp 16 02/02/19 23:02 BP 122/86 02/02/19 23:02 Pulse Ox 97 02/02/19 23:02 - Orders/Labs/Meds Orders: Active Orders 24 hr Category Date Time Status EKG Documentation Completion [RC] STAT Care 02/02/19 22:14 Active Labs: Laboratory Tests 02/02/19 02/02/19 02/02/19 Range/Units 22:50 22:50 22:50 WBC 6.47 (4.0-11.0) K/uL RBC 2.91 L (4.30-5.90) M/uL Hgb 8.6 L (12.0-16.0) g/dL Hct 26.9 L (36.0-46.0) % MCV 92.4 (80.0-98.0) fL MCH 29.6 (27.0-32.0) pg MCHC 32.0 (31.0-37.0) g/dL RDW Std Deviation 50.5 (28.0-62.0) fl RDW Coeff of Maribel 15 (11.0-15.0) % Plt Count 334 (150-400) K/uL MPV 9.50 (7.40-12.00) fL Neut % (Auto) 65.7 (48.0-80.0) % Lymph % (Auto) 25.0 (16.0-40.0) % Monona % (Auto) 2.8 (0.0-15.0) % Eos % (Auto) 6.3 (0.0-7.0) % Baso % (Auto) 0.2 (0.0-1.5) % Neut # (Auto) 4.3 (1.4-5.7) K/uL Lymph # (Auto) 1.6 (0.6-2.4) K/uL Monona # (Auto) 0.2 (0.0-0.8) K/uL Eos # (Auto) 0.4 (0.0-0.7) K/uL Baso # (Auto) 0.0 (0.0-0.1) K/uL Nucleated RBC % 0.0 /100WBC Nucleated RBCs # 0 K/uL INR 0.97 Sodium 144 (136-145) mmol/L Potassium 3.5 (3.5-5.1) mmol/L Chloride 107 (98-107) mmol/L Carbon Dioxide 27.2 (21.0-32.0) mmol/L BUN 8 (7.0-18.0) mg/dL Creatinine 0.8 (0.6-1.0) mg/dL Est Cr Clr Drug Dosing 90.84 mL/min Estimated GFR (MDRD) > 60.0 ml/min Glucose 155 H (74-106) mg/dL Calcium 9.0 (8.5-10.1) mg/dL Total Bilirubin 0.2 (0.2-1.0) mg/dL AST 20 (15-37) IU/L ALT 36 (14-63) IU/L Alkaline Phosphatase 58 (46-116) U/L Total Protein 6.9 (6.4-8.2) g/dL Albumin 3.6 (3.4-5.0) g/dL Globulin 3.3 (2.6-4.0) g/dL Albumin/Globulin Ratio 1.1 (0.9-1.6) Meds: Medications Discontinued Medications Generic Name Dose Route Start Last Admin Trade Name Becca PRN Reason Stop Dose Admin Ketorolac Tromethamine 30 mg 02/02/19 22:14 02/02/19 22:50 Toradol IVPUSH 02/02/19 22:15 30 mg ONETIME ONE Administration Departure - Departure Time of Disposition: 00:22 Disposition: Home, Self-Care 01 Condition: Good Clinical Impression: Atypical chest pain - Discharge Information Referrals: Ruben Mccarthy MD [Primary Care Provider] - Forms: ED Department Discharge Additional Instructions: The following information is given to patients seen in the emergency department who are being discharged to home. This information is to outline your options for follow-up care. We provide all patients seen in our emergency department with a follow-up referral. The need for follow-up, as well as the timing and circumstances, are variable depending upon the specifics of your emergency department visit. If you don't have a primary care physician on staff, we will provide you with a referral. We always advise you to contact your personal physician following an emergency department visit to inform them of the circumstance of the visit and for follow-up with them and/or the need for any referrals to a consulting specialist. The emergency department will also refer you to a specialist when appropriate. This referral assures that you have the opportunity for followup care with a specialist. All of these measure are taken in an effort to provide you with optimal care, which includes your followup. Under all circumstances we always encourage you to contact your private physician who remains a resource for coordinating your care. When calling for followup care, please make the office aware that this follow-up is from your recent emergency room visit. If for any reason you are refused follow-up, please contact the [facility] emergency department at and asked to speak to the emergency department charge nurse. Push fluids follow-up primary medical doctor return as needed as discussed
--- NOTE | 2019-02-02 22:52 | CR ---
INDICATION: Chest pain TECHNIQUE: Chest 1 views COMPARISON: Chest x-ray 09/06/2017 FINDINGS: Cardiovascular and mediastinum: Heart size and vasculature are normal in caliber and appearance. Lungs and pleural spaces: Lungs are clear. No sign of infiltrate or mass. No sign of pleural effusion. No pneumothorax. Bones and soft tissues: No significant findings. IMPRESSION: No acute findings and no significant changes from the prior exam. Dictated by Junaid Hercules MD @ Feb 02 2019 10:49PM Signed by Dr. Junaid Hercules @ Feb 02 2019 10:50PM
[2019-02-02 23:04] VITALS: BP 122/86
[2019-02-02 23:18] LABS: CHLORIDE,CL 107 mmol/L (98-107); SODIUM,NA 144 mmol/L (136-145)
== END 2019-02-03 00:36 | disposition home or self-care (01) ==
LOC: MW.ED 22:10
DX: R07.89 Other chest pain (principal); F41.9 Anxiety disorder, unspecified; Z79.899 Other long term (current) drug therapy
CPT/HCPCS: 36415; 71045; 80053; 85025; 85610; 93005; 96374; 99285; J1885; 99282

== ENCOUNTER 2019-03-04 10:23 | Day surgery (SDC) | payer BC ==
[~2019-03-04 10:23] MED LIST: Lactated Ringers 1,000 ML IV SCH; Sodium Chloride 0.9% 10 ML SDV IV PRN; Sodium Chloride 0.9% 10 ML Syringe FLUSH PRN; Sodium Chloride 0.9% 2.5 ML Syringe FLUSH PRN
--- NOTE | 2019-03-04 11:22 | PCM.PREANE ---
Preanesthetic Assessment - Anesthesia/Transfusion/Family Hx Anesthesia History: Prior Anesthesia Without Reaction (c- section under GA) Family History of Anesthesia Reaction: No Transfusion History: No Prior Transfusion(s) - Review of Systems General: No Symptoms Pulmonary: No Symptoms Cardiovascular: No Symptoms Gastrointestinal: No Symptoms Neurological: No Symptoms Other: Reports: None - Physical Assessment Vital Signs: Last Vital Signs Temp 97.2 F 03/04/19 10:40 Pulse 84 03/04/19 10:40 Resp 16 03/04/19 10:40 BP 126/73 03/04/19 10:40 Pulse Ox 95 03/04/19 10:40 Height: 5 ft 4 in Weight: 117.934 kg ASA Class: 2 Mental Status: Alert & Oriented x3 Airway Class: Mallampati = 1 Dentition: Reports: Normal Dentition ROM/Head Extension: Full Lungs: Clear to Auscultation, Normal Respiratory Effort Cardiovascular: Regular Rate, Regular Rhythm - Allergies Allergies/Adverse Reactions: Allergies Allergy/AdvReac Type Severity Reaction Status Date / Time No Known Allergies Allergy Verified 03/03/19 09:41 - Blood Blood Available: No - Anesthesia Plan Pre-Op Medication Ordered: None - Acknowledgements Anesthesia Type Planned: General Anesthesia Pt an Appropriate Candidate for the Planned Anesthesia: Yes Alternatives and Risks of Anesthesia Discussed w Pt/Guardian: Yes Pt/Guardian Understands and Agrees with Anesthesia Plan: Yes Additional Comments: PMH: thyroid replacement, [place] PLAN: [email or web address]-lma PreAnesthesia Questionnaire - Past Health History Medical/Surgical History: Denies Medical/Surgical History HEENT History: Reports: None Cardiovascular History: Reports: None Respiratory History: Reports: None Gastrointestinal History: Reports: GERD, Other (See Below) Other Gastrointestinal History: occasionally takes Omeprazole Genitourinary History: Reports: None 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 incompetent cervix Musculoskeletal History: Reports: Neck Pain, Chronic Neurological History: Reports: Migraines Psychiatric History: Reports: Anxiety Endocrine/Metabolic History: Reports: Hypothyroidism, Obesity/BMI 30+ Hematologic History: Reports: None Immunologic History: Reports: None Oncologic (Cancer) History: Reports: None Dermatologic History: Reports: Other (See Below) Other Dermatologic History: has a rash on her legs - Infectious Disease History Infectious Disease History: Reports: Chicken Pox - Past Surgical History Head Surgeries/Procedures: Reports: None Female Surgical History: Reports: Section, D&C, Other (See Below) Other Female Surgeries/Procedures: hx of Cervical Cerclage - SUBSTANCE USE Smoking Status *Q: Current Every Day Smoker Tobacco Use Within Last Twelve Months: Cigarettes Recreational Drug Use History: No - HOME MEDS Home Medications: Home Meds Levothyroxine 200 mcg PO DAILY 05/14/15 [History] Amoxicillin 250 mg PO TID 03/03/19 [History] Escitalopram [Lexapro] 10 mg PO DAILY 03/03/19 [History] - CURRENT (IN HOUSE) MEDS Current Meds: Current Medications Lactated Ringer's (Ringers, Lactated) 1,000 mls @ 500 mls/hr IV BOLUS JUANIS Sodium Chloride (Saline Flush) 10 ml FLUSH ASDIRECTED PRN PRN Reason: Keep Vein Open Sodium Chloride (Saline Flush) 2.5 ml FLUSH ASDIRECTED PRN PRN Reason: Keep Vein Open Sodium Chloride (Normal Saline) 10 ml IV ASDIRECTED PRN PRN Reason: IV Use
[2019-03-04] MEDS ORDERED: Ondansetron 4 MG/2 ML SDV ONE (13:08)
[2019-03-04] MEDS ORDERED: Ketorolac 30 MG/ML SDV ONE (13:08)
[2019-03-04] MEDS ORDERED: Lidocaine 2% 5 ML SDV ONE (13:08)
[2019-03-04] MEDS ORDERED: Glycopyrrolate 0.2 MG/ML SDV ONE (13:08)
[2019-03-04] MEDS ORDERED: Dexamethasone 4 MG/ML 5 ML MDV ONE (13:08)
[2019-03-04] MEDS ORDERED: Propofol 200 MG/20 ML SDV ONE (13:08)
[2019-03-04] MEDS ORDERED: Midazolam 1 MG/ML 2 ML SDV ONE (13:09)
[2019-03-04] MEDS ORDERED: fentaNYL 100 MCG/2 ML SDV ONE (13:09)
[2019-03-04] MEDS ORDERED: Phenylephrine/Normal Saline 100 MCG/ML 10 ML Syringe ONE (13:30)
--- NOTE | 2019-03-04 14:11 | PCM.OPNOTE ---
- General Post-Op/Procedure Note Date of Surgery/Procedure: 03/04/19 Operative Procedure(s): Hysteroscopy D &C Findings: Normal sized anteverted uterus Endometrium with irregular shaped dark mass in the posterior wall Pre Op Diagnosis: Abnormal uterine bleeding s/p SAB Post-Op Diagnosis: same Anesthesia Technique: General LMA Primary Surgeon: Adair Johnson Anesthesia Provider: Conor Roger Pathology: Endometrial currettings Fluid Replacement, Intraop: 600 EBL in mLs: 5 Condition: Good Free Text/Narrative:: Intake & Output 03/03/19 03/04/19 03/04/19 22:59 06:59 14:59 Output Total 25 Balance -25
[2019-03-04 15:34] VITALS: BP 114/76
--- NOTE | 2019-03-04 15:34 | PCM.POSTAN ---
POST ANESTHESIA ASSESSMENT - MENTAL STATUS Mental Status: Alert, Oriented - VITAL SIGNS Vital Signs: Last Vital Signs Temp 97.5 F 03/04/19 15:00 Pulse 88 03/04/19 15:00 Resp 16 03/04/19 15:00 BP 105/63 03/04/19 15:00 Pulse Ox 93 L 03/04/19 15:00 - RESPIRATORY Respiratory Status: Respiratory Rate WNL, Airway Patent, O2 Saturation Stable - CARDIOVASCULAR CV Status: Pulse Rate WNL, Blood Pressure Stable - GASTROINTESTINAL GI Status: No Symptoms - POST OP HYDRATION Hydration Status: Adequate & Stable
--- NOTE | 2019-03-04 15:34 | PCM48HPAN ---
Post Anesthesia Note - EVALUATION WITHIN 48HRS OF ANESTHETIC Vital Signs in Normal Range: Yes Patient Participated in Evaluation: Yes Respiratory Function Stable: Yes Airway Patent: Yes Cardiovascular Function Stable: Yes Hydration Status Stable: Yes Pain Control Satisfactory: Yes Nausea and Vomiting Control Satisfactory: Yes Mental Status Recovered: Yes Vital Signs: Last Vital Signs Temp 97.5 F 03/04/19 15:00 Pulse 88 03/04/19 15:00 Resp 16 03/04/19 15:00 BP 105/63 03/04/19 15:00 Pulse Ox 93 L 03/04/19 15:00
--- NOTE | 2019-03-05 00:05 | OR ---
SURGEON: MEGHNA TEJADAUZOLAKISHAWE DATE OF PROCEDURE: 03/04/2019 PREOPERATIVE DIAGNOSIS: Abnormal uterine bleeding. POSTOPERATIVE DIAGNOSIS: Abnormal uterine bleeding. PROCEDURE: Hysteroscopy, dilatation and curettage. ESTIMATED BLOOD LOSS: Minimal. IV FLUID: 600. ANESTHESIA: General LMA. DEFICIT: 500 mL of normal saline. PATHOLOGY: Endometrial curettings FINDING: Ultrasound showed normal-sized anteverted uterus. Hysteroscopy showed a fleshy mass in the posterior uterine wall. BRIEF HISTORY: The patient is 33-year-old, recently had a SAB. She came in because she was complaining of abnormal uterine bleeding. Ultrasound was done and showed thickened posterior wall with some heterogenicity and some increased Doppler flow. Beta HCG was done which was negative. As a result of this, the patient was consented for a D and C, hysteroscopy. The patient understood the risks, benefits, alternatives and decided to proceed. DESCRIPTION OF PROCEDURE: The patient was taken to the operating room, where general anesthesia was performed without difficulty. She was prepared and draped in the dorsal lithotomy position with the Fazal stirrups. The cervix was exposed with the aid of a speculum. Then, this was dilated to accommodate the MyoSure hysteroscope. The MyoSure hysteroscope was advanced into the uterus, and the above-noted finding was noted. A MyoSure was introduced , the mass in the posterior uterine wall was removed with the aid of the device. Then a blind D and C was done with a size 3 curette. All instrument and pad counts were correct x2. The patient tolerated the procedure well and was sent to Labor and Delivery room in stable condition. VIKTORIYA NESBITT /[id number] MTDUrbano
== END 2019-03-04 15:40 | disposition home or self-care (01) ==
LOC: MW.SDS 10:23
PROVIDERS: ATTEND Obstetrics & Gynecology
DX: O03.4 Incomplete spontaneous abortion without complication (principal); E03.9 Hypothyroidism, unspecified; F17.210 Nicotine dependence, cigarettes, uncomplicated; Z79.899 Other long term (current) drug therapy
CPT/HCPCS: 59812; J1100; J1885; J2001; J2250; J2370; J2405; J2704; J3010; J3490; J7120; 88305

== ENCOUNTER 2019-09-21 | Emergency (ER) | payer BC ==
--- NOTE | 2019-09-21 00:17 | EDM.PDOC ---
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 She has been already seen by her OB Dr. Sanon and the last time she was seen her cervix was closed. She has a history of an incompetent cervix and miscarriages and has had a previous cerclage at 19 weeks. However, the patient is scheduled for cerclage this Sunday at only 13 weeks and 4 days. No fevers, no dizziness, no syncope or near syncope, no shortness of breath or any other complaints at this time. - Related Data Allergies Allergy/AdvReac Type Severity Reaction Status Date / Time No Known Allergies Allergy Verified 09/21/19 00:06 Home Meds: Home Meds Levothyroxine 200 mcg PO QAM 05/14/15 [History] No122/Iron/Folic Acid [ Multi Tablet] 1 tab PO DAILY 09/18/19 [ History] Past Medical History - Past Health History Medical/Surgical History: Denies Medical/Surgical History HEENT History: Reports: None Cardiovascular History: Reports: None Respiratory History: Reports: None Gastrointestinal History: Reports: GERD Other Gastrointestinal History: occasionally takes TUMS Genitourinary History: Reports: UTI, Recurrent Other Genitourinary History: frequent UTI 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 Hematologic History: Reports: None Immunologic History: Reports: None Oncologic (Cancer) History: Reports: None Dermatologic History: Reports: Other (See Below) Other Dermatologic History: tends to get skin rashes when - Infectious Disease History Infectious Disease History: Reports: Chicken Pox - Past Surgical History Head Surgeries/Procedures: Reports: None Female Surgical History: Reports: Section, D&C, Other (See Below) Other Female Surgeries/Procedures: previous Cervical Cerclage Social & Family History - Family History Family Medical History: Noncontributory Cardiac: Reports: Angina, Hypertension, [place] - Tobacco Use Smoking Status *Q: Never Smoker - Caffeine Use Caffeine Use: Reports: Coffee - Recreational Drug Use Recreational Drug Use: No ED ROS GENERAL - Review of Systems Review Of Systems: See Below (Positive for vaginal bleeding, negative for abdominal cramping, good for dizziness, negative shortness of breath, all other Positives and pertinent negatives as per HPI. All other pertinent systems were reviewed and are negative) ED EXAM - Physical Exam Exam: See Below Text/Narrative:: Constitutional: No acute distress, Non-toxic appearance, morbidly obese HEENT.: Normocephalic, Atraumatic, PERRL, EOMI, External ears are atraumatic, nares are patent without epistaxis Neck: Normal range of motion, Trachea Midline, No stridor Respiratory.: No respiratory distress, No tachypnea, Lungs Clear to Auscultation bilaterally without wheezes, rales, or rhonchi Cardiovascular.: Tachycardic rate and Rhythm without murmurs, rubs, or gallops , good peripheral perfusion GI: Abdomen soft and non tender, morbidly obese Genital Urinary: Deferred Musculoskeletal: Good range of motion. All 4 extremities present and atraumatic , no edema Back: Full Range of Motion Skin: Warm, Dry, Color is ethnicity appropriate, No acute rash. Lymphatic: No lymphadenopathy noted Neurological: Alert, Awake and oriented x 3, No focal deficits noted appreciate , GCS 15 Psych: Affect, Judgement, mood normal Course - Vital Signs Text/Narrative:: The patient is known Rh+ and has never needed RhoGam. I performed a transabdominal bedside ultrasound -there is an intrauterine as the patient has expressed, the fetus is actively moving around and has a normal heart rate. I contacted OB Dr. Gordon who is on-call for Dr. Sanon and she is aware of the patient. She states that regardless if the cervix is dilated or not the patient will not be receiving a cerclage tonight. I talked to the patient in detail about this, and at this time I will not perform a full pelvic examination because it is not going to change control analyst in any way, but by manipulating the cervix I could be introducing infection or even exacerbate the patient's current symptoms and cause her to have a miscarriage so I do not think that it is worth the examination when it will not change control analyst. The patient states her understanding. At this time she has been instructed not to perform any sexual intercourse and nothing goes in her vagina until she is cleared by her OB. Last Recorded V/S: Last Vital Signs Temp 36.3 C 09/21/19 00:00 Pulse 116 H 09/21/19 00:00 Resp 18 09/21/19 00:00 BP 153/87 H 09/21/19 00:00 Pulse Ox 98 09/21/19 00:00 Departure - Departure Time of Disposition: 00:39 Disposition: Home, Self-Care 01 Condition: Good Clinical Impression: Vaginal bleeding in - Discharge Information *PRESCRIPTION DRUG MONITORING PROGRAM REVIEWED*: Not Applicable *COPY OF PRESCRIPTION DRUG MONITORING REPORT IN PATIENT RON: Not Applicable Referrals: PCP,None [Primary Care Provider] - Forms: ED Department Discharge Additional Instructions: Nothing in the vagina as discussed. Follow-up with Dr. Sanon as scheduled and return to the ER for any concerns as discussed. Sepsis Event Note - Evaluation Sepsis Screening Result: No Definite Risk - Focused Exam Vital Signs: Vital Signs Temp Pulse Resp BP Pulse Ox 09/21/19 00:00 36.3 C 116 H 18 153/87 H 98 Date Exam was Performed: 09/21/19 Time Exam was Performed: 00:36
[2019-09-21 01:04] VITALS: BP 138/85; PULSE 106
== END 2019-09-21 00:55 | disposition home or self-care (01) ==
LOC: MW.ED
DX: O20.9 Hemorrhage in early pregnancy, unspecified (principal); O99.281 Endocrine, nutritional and metabolic diseases complicating pregnancy, first trimester; E03.9 Hypothyroidism, unspecified; O99.211 Obesity complicating pregnancy, first trimester; Z79.899 Other long term (current) drug therapy; Z3A.13 13 weeks gestation of pregnancy; Z68.41 Body mass index [BMI] 40.0-44.9, adult
CPT/HCPCS: 99282; 99284-25

== ENCOUNTER 2019-09-23 07:34 | Day surgery (SDC) | payer BC ==
[~2019-09-23 07:34] MED LIST changes: +Dexamethasone 4 MG/ML 5 ML MDV ONE; +Ondansetron 4 MG/2 ML SDV ONE; -Sodium Chloride 0.9% 10 ML SDV IV PRN; -Sodium Chloride 0.9% 10 ML Syringe FLUSH PRN; -Sodium Chloride 0.9% 2.5 ML Syringe FLUSH PRN; +fentaNYL 100 MCG/2 ML SDV ONE
--- NOTE | 2019-09-23 08:11 | PCM.PREANE ---
Preanesthetic Assessment - Anesthesia/Transfusion/Family Hx Anesthesia History: Prior Anesthesia Without Reaction Family History of Anesthesia Reaction: No Transfusion History: No Prior Transfusion(s) Intubation History: Unknown - Review of Systems General: No Symptoms Pulmonary: No Symptoms Cardiovascular: No Symptoms Gastrointestinal: No Symptoms Neurological: No Symptoms Other: Reports: None - Physical Assessment Height: 5 ft 4 in Weight: 120.202 kg ASA Class: 2 Mental Status: Alert & Oriented x3 Airway Class: Mallampati = 2 Dentition: Reports: Normal Dentition Thyro-Mental Finger Breadths: 3 Mouth Opening Finger Breadths: 2 ROM/Head Extension: Full Lungs: Clear to Auscultation, Normal Respiratory Effort Cardiovascular: Regular Rate, Regular Rhythm - Allergies Allergies/Adverse Reactions: Allergies Allergy/AdvReac Type Severity Reaction Status Date / Time No Known Allergies Allergy Verified 09/21/19 00:06 - Blood Blood Available: No - Anesthesia Plan Pre-Op Medication Ordered: None - Acknowledgements Anesthesia Type Planned: Spinal (general anesthesia back-up plan) Pt an Appropriate Candidate for the Planned Anesthesia: Yes Alternatives and Risks of Anesthesia Discussed w Pt/Guardian: Yes Pt/Guardian Understands and Agrees with Anesthesia Plan: Yes PreAnesthesia Questionnaire - Past Health History Medical/Surgical History: Denies Medical/Surgical History HEENT History: Reports: None Cardiovascular History: Reports: None Respiratory History: Reports: None Gastrointestinal History: Reports: GERD Other Gastrointestinal History: occasionally takes TUMS Genitourinary History: Reports: UTI, Recurrent Other Genitourinary History: frequent UTI when 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 incompetent cervix Musculoskeletal History: Reports: Back Pain, Chronic, Neck Pain, Chronic Neurological History: Reports: Migraines Psychiatric History: Reports: Anxiety Other Psychiatric History: has not taken any medication for anxiety for 6 months Endocrine/Metabolic History: Reports: Hypothyroidism, Obesity/BMI 30+ Hematologic History: Reports: None Immunologic History: Reports: None Oncologic (Cancer) History: Reports: None Dermatologic History: Reports: Other (See Below) Other Dermatologic History: tends to get skin rashes when - Infectious Disease History Infectious Disease History: Reports: Chicken Pox - Past Surgical History Head Surgeries/Procedures: Reports: None Female Surgical History: Reports: Section, D&C, Hysterectomy, Other (See Below) Other Female Surgeries/Procedures: previous Cervical Cerclage 10/15 - SUBSTANCE USE Smoking Status *Q: Never Smoker Recreational Drug Use History: No - HOME MEDS Home Medications: Home Meds Levothyroxine 200 mcg PO QAM 05/14/15 [History] No122/Iron/Folic Acid [ Multi Tablet] 1 tab PO DAILY 09/18/19 [ History] - CURRENT (IN HOUSE) MEDS Current Meds: Current Medications Lactated Ringer's (Ringers, Lactated) 1,000 mls @ 125 mls/hr IV ASDIRECTED JUANIS Discontinued Medications Dexamethasone (Dexamethasone) Confirm Administered Dose 20 mg .ROUTE .STK-MED ONE Stop: 09/23/19 07:34 Fentanyl (Sublimaze) Confirm Administered Dose 100 mcg .ROUTE .STK-MED ONE Stop: 09/23/19 07:33 Ondansetron HCl (Zofran) Confirm Administered Dose 4 mg .ROUTE .STK-MED ONE Stop: 09/23/19 07:34
--- NOTE | 2019-09-23 10:35 | PCM.OPNOTE ---
- General Post-Op/Procedure Note Date of Surgery/Procedure: 09/23/19 Operative Procedure(s): Boyd cervical cerclage Findings: Cervix soft, thick preoperative, closed postoperatively. Pre Op Diagnosis: cervical incompetence Post-Op Diagnosis: Same Anesthesia Technique: Spinal Primary Surgeon: Karely Snaon Secondary Surgeon: Evita Gordon Anesthesia Provider: Ashlee Baker Regional Economist: Derrick Quiñonez Pathology: none Fluid Replacement, Intraop: 1,100 EBL in mLs: 30 Complications: None known Condition: Good Free Text/Narrative:: Intake & Output 09/22/19 09/23/19 09/23/19 22:59 06:59 14:59 Output Total 50 Balance -50
--- NOTE | 2019-09-23 10:54 | PCM.POSTAN ---
POST ANESTHESIA ASSESSMENT - MENTAL STATUS Mental Status: Alert, Oriented - VITAL SIGNS Vital Signs: Last Vital Signs Temp 36.3 C 09/23/19 10:25 Pulse 68 09/23/19 10:50 Resp 11 L 09/23/19 10:50 BP 112/65 09/23/19 10:50 Pulse Ox 100 09/23/19 10:50 - RESPIRATORY Respiratory Status: Respiratory Rate WNL, Airway Patent, O2 Saturation Stable - CARDIOVASCULAR CV Status: Pulse Rate WNL, Blood Pressure Stable - GASTROINTESTINAL GI Status: No Symptoms - PAIN Pain Score: 0 - POST OP HYDRATION Hydration Status: Adequate & Stable - OBSERVATIONS Free Text/Narrative:: No anesthesia problems
--- NOTE | 2019-09-23 11:45 | OR ---
SURGEON: Karely Sanon M.D. DATE OF PROCEDURE: 09/23/2019 PREOPERATIVE DIAGNOSES: A 14-week intrauterine , cervical incompetence. POSTOPERATIVE DIAGNOSES: A 14-week intrauterine , cervical incompetence. PROCEDURE: Boyd cerclage. PRIMARY SURGEON: Karely Sanon MD. MENTAL HEALTH AIDES TEACHER: Evita Gordon MD. ANESTHESIA: Spinal. ESTIMATED BLOOD LOSS: Less than 30 mL. FLUIDS: 1100 mL of crystalloid. FINDINGS: Preoperatively, the prior cerclage site was noted. The cervix was very soft, accepted a finger to 1 cm with palpation to the internal os. Postoperatively, cervix was firm and closed with cerclage in place. COMPLICATIONS: None known. DISPOSITION: Stable to Recovery. BRIEF HISTORY: This is a 34-year-old female. She is G5, P 1-0-3-1, with one prior successful term delivery by section. A prior 18-week loss and two prior first to second trimester losses. She is currently 14 weeks' gestation. She has had a confirmed viable intrauterine gestation. There were no gross anomalies on first trimester limited anatomic survey, and she desires to proceed with a cerclage with risks having been discussed including bleeding, infection, injury to bladder or bowel, risk of thromboembolism, risk of anesthesia. She also understands the risk of early with possible result of a child with lifelong disability. Understanding all of these issues, she does desire to proceed with transvaginal cervical cerclage. DESCRIPTION OF PROCEDURE: With the patient in dorsal lithotomy position, under adequate spinal analgesia, the perineum was prepped with Betadine and draped in the usual fashion for vaginal surgery. The bladder had been drained with straight cath and SCDs were in place. The appropriate time-out was held, and the surgeon then proceeded with a vaginal prep using Betadine. Under direct visualization, ensuring that there was circumferential treatment around the cervical cornua, the cervix was then examined. The prior cerclage stitch sites were easily visible and this was at the reflection between the cervix and the bladder. 0 Prolene suture was placed in a pursestring fashion starting at the 12 o'clock position, proceeding circumferentially around the cervix with the stitch placed within the cervical tissue. A second stitch was then placed circumferentially just above the first. A finger was placed into the cervix as the stitches were tied, ensuring that the cervix was closed, but that it did not constrain the cervix related to blood flow. These sutures were both tied at the 12 o'clock position. There was no active bleeding. The vagina was cleaned. All the instruments were removed from the vagina. Final sponge, needle, and instrument counts were reported as correct. There were no known complications. The patient was transferred to Recovery in good condition. DEE / LAZ /[id number] MTDD
--- NOTE | 2019-09-23 14:20 | PCM48HPAN ---
Post Anesthesia Note - EVALUATION WITHIN 48HRS OF ANESTHETIC Vital Signs in Normal Range: Yes Patient Participated in Evaluation: Yes Respiratory Function Stable: Yes Airway Patent: Yes Cardiovascular Function Stable: Yes Hydration Status Stable: Yes Pain Control Satisfactory: Yes Nausea and Vomiting Control Satisfactory: Yes Mental Status Recovered: Yes Vital Signs: Last Vital Signs Temp 36.3 C 09/23/19 10:25 Pulse 68 09/23/19 10:50 Resp 11 L 09/23/19 10:50 BP 112/65 09/23/19 10:50 Pulse Ox 100 09/23/19 10:50 - COMMENTS/OBSERVATIONS Free Text/Narrative:: No anesthesia problems
[2019-09-23 17:02] VITALS: BP 113/58; PULSE 73
== END 2019-09-23 14:40 | disposition home or self-care (01) ==
LOC: MW.SDS 07:34
PROVIDERS: ATTEND Obstetrics & Gynecology
DX: O34.31 Maternal care for cervical incompetence, first trimester (principal); O09.291 Supervision of pregnancy with other poor reproductive or obstetric history, first trimester; O23.591 Infection of other part of genital tract in pregnancy, first trimester; O99.281 Endocrine, nutritional and metabolic diseases complicating pregnancy, first trimester; E03.9 Hypothyroidism, unspecified; E66.9 Obesity, unspecified; O99.351 Diseases of the nervous system complicating pregnancy, first trimester; G47.33 Obstructive sleep apnea (adult) (pediatric); Z87.891 Personal history of nicotine dependence; Z79.890 Hormone replacement therapy; Z98.890 Other specified postprocedural states; Z3A.14 14 weeks gestation of pregnancy
CPT/HCPCS: 36415; 59320; 85025; J1100; J2405; J3010; J7120; 00948

== ENCOUNTER 2019-11-14 09:55 | Emergency (ER) | payer BC | END 2019-11-14 10:24 | disposition left against medical advice (07) | LOC: MW.ED 09:55 | DX: Z53.21 Procedure and treatment not carried out due to patient leaving prior to being seen by health care provider (principal) ==

== ENCOUNTER 2019-11-14 10:14 | Observation (INO) | payer BC ==
[2019-11-14] MEDS ORDERED: Promethazine 25 MG/ML SDV IM ONE (11:41)
[2019-11-14] MEDS ORDERED: Lactated Ringers 1,000 ML IV ONE ×2 (11:41→12:59)
[2019-11-14 12:48] LABS: BLOOD UREA NITROGEN,BUN 9 mg/dL (7.0-18.0); CARBON DIOXIDE,CO2 25.6 mmol/L (21.0-32.0); CHLORIDE,CL 103 mmol/L (98-107); GLUCOSE RANDOM 111 mg/dL (74-106); POTASSIUM,K 3.3 mmol/L (3.5-5.1); SODIUM,NA 142 mmol/L (136-145)
--- NOTE | 2019-11-14 14:55 | PCM.HP.2 ---
H&P History of Present Illness - General Date of Service: 11/14/19 Admit Problem/Dx: Admission Diagnosis/Problem Admission Diagnosis/Problem - planned Source of Information: Patient History Limitations: Reports: No Limitations - History of Present Illness Initial Comments - Free Text/Narative: 34yo @ 20w5d presents with continued nausea, vomiting, and dizziness. Denies diarrhea, fever. Seen in triage on Sunday with same problems, discharged home with zofran. Patient received IM Phenergan and IV fluids in triage today, initially able to tolerate oral intake, then had recurrence of vomiting. Continues to have blood-tinged mucus discharge from cerclage. Feels baby moving. Denies contractions, leakage of fluid. Improves with: Reports: None Worsens with: Reports: None Associated Symptoms: Reports: No Other Symptoms - Related Data Allergies/Adverse Reactions: Allergies Allergy/AdvReac Type Severity Reaction Status Date / Time No Known Allergies Allergy Verified 09/23/19 08:32 Home Medications: Home Meds Levothyroxine 200 mcg PO QAM 05/14/15 [History] No122/Iron/Folic Acid [ Multi Tablet] 1 tab PO DAILY 09/18/19 [ History] Past Medical History - Past Health History Medical/Surgical History: Denies Medical/Surgical History HEENT History: Reports: None Cardiovascular History: Reports: None Respiratory History: Reports: None Gastrointestinal History: Reports: GERD Other Gastrointestinal History: occasionally takes TUMS Genitourinary History: Reports: UTI, Recurrent Other Genitourinary History: frequent UTI when RED LEADER History: Reports: , Spontaneous Other OB/BYN History: cerclage in place. incompetent cervix. G1 2012 SAB. G2 2013 18wk demise. G3 2015 38wk CD. 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 Pump Model and Veterans Employment Representative: N/A Hematologic History: Reports: None Immunologic History: Reports: None Oncologic (Cancer) History: Reports: None Dermatologic History: Reports: Other (See Below) Other Dermatologic History: tends to get skin rashes when - Infectious Disease History Infectious Disease History: Reports: Chicken Pox - Past Surgical History Head Surgeries/Procedures: Reports: None Female Surgical History: Reports: Section, D&C, Hysterectomy, Other (See Below) Other Female Surgeries/Procedures: previous Cervical Cerclage 04/29 Social & Family History - Family History Family Medical History: Noncontributory Cardiac: Reports: Angina, Hypertension, ID - Caffeine Use Caffeine Use: Reports: Coffee H&P Review of Systems - Review of Systems: Review Of Systems: See Below General: Denies: Fever, Chills HEENT: Reports: No Symptoms Pulmonary: Reports: No Symptoms Cardiovascular: Reports: No Symptoms Gastrointestinal: Reports: Nausea, Vomiting. Denies: Diarrhea Genitourinary: Reports: No Symptoms Musculoskeletal: Reports: No Symptoms Skin: Reports: No Symptoms Psychiatric: Reports: No Symptoms Neurological: Reports: Dizziness Hematologic/Lymphatic: Reports: No Symptoms Immunologic: Reports: No Symptoms Exam - Exam Exam: See Below - Vital Signs Weight: 113.852 kg - Exam General: Alert, Oriented HEENT: Hearing Intact Neck: Supple Lungs: Clear to Auscultation, Normal Respiratory Effort Cardiovascular: Regular Rate, Regular Rhythm GI/Abdominal Exam: Soft, Non-Tender, Other (gravid) Extremities: Normal Inspection Skin: Warm, Dry, Intact Neuro Extensive - Mental Status: Alert, Oriented x3 Psychiatric: Alert, Normal Affect, Normal Mood - Patient Data Lab Results Last 24 hrs: Laboratory Results - last 24 hr 11/14/19 11/14/19 Range/Units 10:20 12:04 Sodium 142 (136-145) mmol/L Potassium 3.3 L (3.5-5.1) mmol/L Chloride 103 (98-107) mmol/L Carbon Dioxide 25.6 (21.0-32.0) mmol/L BUN 9 (7.0-18.0) mg/dL Creatinine 0.6 (0.6-1.0) mg/dL Est Cr Clr Drug Dosing 120.00 mL/min Estimated GFR (MDRD) > 60.0 ml/min Glucose 111 H (74-106) mg/dL Calcium 9.3 (8.5-10.1) mg/dL Total Bilirubin 1.1 H (0.2-1.0) mg/dL AST 34 (15-37) IU/L ALT 38 (14-63) IU/L Alkaline Phosphatase 77 (46-116) U/L Total Protein 6.6 (6.4-8.2) g/dL Albumin 3.0 L (3.4-5.0) g/dL Globulin 3.6 (2.6-4.0) g/dL Albumin/Globulin Ratio 0.8 L (0.9-1.6) Urine Color DARK YELLOW Urine Appearance CLOUDY Urine pH 6.5 (5.0-8.0) Ur Specific [place] >= 1.030 (1.001-1.035) Urine Protein 30 H (NEGATIVE) mg/dL Urine Glucose (UA) NEGATIVE (NEGATIVE) mg/dL Urine Ketones >=80 (NEGATIVE) mg/dL Urine Occult Blood LARGE H (NEGATIVE) Urine Nitrite NEGATIVE (NEGATIVE) Urine Bilirubin MODERATE H (NEGATIVE) Urine Ictotest POSITIVE Urine Urobilinogen 4.0 H (<2.0) EU/dL Ur Leukocyte Esterase TRACE H (NEGATIVE) Urine RBC 0-3 (0-2/HPF) Urine WBC 0-3 (0-5/HPF) Ur Epithelial Cells MANY (NONE-FEW) Urine Bacteria 4+ H (NEGATIVE) Urine Mucus MODERATE (NONE-MOD) Result Diagrams: 11/14/19 12:04 *Q Meaningful Use (ADM) - VTE Risk Assess *Q Each Risk Factor Represents 1 Point: Obesity ( BMI > 25 kg/m2), or , Less than 1 Month Total Score 1 Point Risk Factors: 2 Each Risk Factor Represents 2 Points: None Total Score 2 Point Risk Factors: 0 Each Risk Factor Represents 3 Points: None Total Score 3 Point Risk Factors: 0 Each Risk Factor Represents 5 Points: None Total Score 5 Point Risk Factors: 0 Venous Thromboembolism Risk Factor Score *Q: 2 - Problem List (1) Vomiting affecting SNOMED Code(s): 16197982, 624392034 ICD Code: O21.9 - VOMITING OF , UNSPECIFIED Status: Acute Current Visit: Yes Problem List Initiated/Reviewed/Updated: Yes Orders Last 24hrs: Active Orders 24 hr Category Date Time Status Patient Status [ADT] Routine ADT 11/14/19 10:30 Active Up ad Diane [RC] ASDIRECTED Care 11/14/19 10:39 Active Vital Signs [RC] PER UNIT ROUTINE Care 11/14/19 10:39 Active Resuscitation Status Routine Resus Stat 11/14/19 10:39 Ordered Assessment/Plan Comment:: 34yo @ 20w5d with nausea/vomiting 1. Nausea/vomiting: Admit to Med/Surg for observation, scheduled antiemetics, IV fluids 2. Hypokalemia: Oral potassium replacement, recheck in AM 3. : Continue vitamin, monitoring reassuring in triage, no concerns with cerclage 4. Hypothyroidism: Continue Levothyroxine
[2019-11-14] MEDS ORDERED: Acetaminophen 325 MG Tab PO PRN (15:00)
[2019-11-14] MEDS ORDERED: Ondansetron 4 MG/2 ML SDV IVPUSH SCH (15:15)
[2019-11-14] MEDS ORDERED: Promethazine 25 MG/ML SDV IM SCH (15:15)
[2019-11-14] MEDS: Lactated Ringers 1,000 ML IV SCH (16:59)
[2019-11-14] MEDS: Potassium Bicarbonate 25 MEQ Tab.EFF PO SCH (17:04)
[2019-11-14] MEDS: Ondansetron 4 MG/2 ML SDV IVPUSH SCH ×2 (17:07→21:34)
[2019-11-14] MEDS: Promethazine 25 MG/ML SDV IM SCH ×2 (18:37→23:25)
[2019-11-15] MEDS: Lactated Ringers 1,000 ML IV SCH ×2 (01:06→09:05)
[2019-11-15] MEDS: Ondansetron 4 MG/2 ML SDV IVPUSH SCH ×2 (03:40→09:09)
[2019-11-15] MEDS: Promethazine 25 MG/ML SDV IM SCH (06:13)
[2019-11-15 06:43] LABS: BLOOD UREA NITROGEN,BUN 7 mg/dL (7.0-18.0); CARBON DIOXIDE,CO2 24.9 mmol/L (21.0-32.0); CHLORIDE,CL 106 mmol/L (98-107); GLUCOSE RANDOM 82 mg/dL (74-106); POTASSIUM,K 2.9 mmol/L (3.5-5.1); SODIUM,NA 141 mmol/L (136-145)
[2019-11-15] MEDS ORDERED: LEVOTHYROXINE 200 MCG PO SCH (07:30)
[2019-11-15] MEDS ORDERED: Prenatal Multivitamin and Multimineral with Iron Tab PO SCH (09:00)
[2019-11-15] MEDS: Potassium Bicarbonate 25 MEQ Tab.EFF PO SCH (09:08)
[2019-11-15] MEDS ORDERED: Ondansetron 4 MG Tab.DIS PO PRN (09:46)
[2019-11-15] MEDS ORDERED: Promethazine 25 MG Tab PO PRN (09:46)
--- NOTE | 2019-11-15 09:54 | PCM.PN ---
- General Info Date of Service: 11/15/19 Admission Dx/Problem (Free Text): Patient reports nausea improving, no vomiting. Still having dizziness. Continues to have brown discharge. Denies abdominal pain. + movement. Functional Status: Reports: Pain Controlled, Ambulating, Urinating - Review of Systems General: Reports: No Symptoms HEENT: Reports: No Symptoms Pulmonary: Reports: No Symptoms Cardiovascular: Reports: No Symptoms Gastrointestinal: Reports: Nausea Genitourinary: Reports: No Symptoms Musculoskeletal: Reports: No Symptoms Skin: Reports: No Symptoms Neurological: Reports: Dizziness Psychiatric: Reports: No Symptoms - Patient Data Vitals - Most Recent: Last Vital Signs Temp 36.0 C L 11/15/19 07:15 Pulse 70 11/15/19 07:15 Resp 16 11/15/19 07:15 BP 99/44 L 11/15/19 07:15 Pulse Ox 96 11/15/19 07:15 Weight - Most Recent: 113.852 kg I&O - Last 24 Hours: Intake & Output 11/14/19 11/15/19 11/15/19 22:59 06:59 14:59 Intake Total 1311 Output Total 450 Balance 861 Lab Results Last 24 Hours: Laboratory Results - last 24 hr 11/14/19 11/14/19 11/15/19 Range/Units 10:20 12:04 06:00 Sodium 142 141 (136-145) mmol/L Potassium 3.3 L 2.9 L (3.5-5.1) mmol/L Chloride 103 106 (98-107) mmol/L Carbon Dioxide 25.6 24.9 (21.0-32.0) mmol/L BUN 9 7 (7.0-18.0) mg/dL Creatinine 0.6 0.5 L (0.6-1.0) mg/dL Est Cr Clr Drug Dosing 120.00 144.00 mL/min Estimated GFR (MDRD) > 60.0 > 60.0 ml/min Glucose 111 H 82 (74-106) mg/dL Calcium 9.3 8.2 L (8.5-10.1) mg/dL Total Bilirubin 1.1 H (0.2-1.0) mg/dL AST 34 (15-37) IU/L ALT 38 (14-63) IU/L Alkaline Phosphatase 77 (46-116) U/L Total Protein 6.6 (6.4-8.2) g/dL Albumin 3.0 L (3.4-5.0) g/dL Globulin 3.6 (2.6-4.0) g/dL Albumin/Globulin Ratio 0.8 L (0.9-1.6) Urine Color DARK YELLOW Urine Appearance CLOUDY Urine pH 6.5 (5.0-8.0) Ur Specific [place] >= 1.030 (1.001-1.035) Urine Protein 30 H (NEGATIVE) mg/dL Urine Glucose (UA) NEGATIVE (NEGATIVE) mg/dL Urine Ketones >=80 (NEGATIVE) mg/dL Urine Occult Blood LARGE H (NEGATIVE) Urine Nitrite NEGATIVE (NEGATIVE) Urine Bilirubin MODERATE H (NEGATIVE) Urine Ictotest POSITIVE Urine Urobilinogen 4.0 H (<2.0) EU/dL Ur Leukocyte Esterase TRACE H (NEGATIVE) Urine RBC 0-3 (0-2/HPF) Urine WBC 0-3 (0-5/HPF) Ur Epithelial Cells MANY (NONE-FEW) Urine Bacteria 4+ H (NEGATIVE) Urine Mucus MODERATE (NONE-MOD) Med Orders - Current: Current Medications Acetaminophen (Tylenol) 650 mg PO Q4H PRN PRN Reason: analgesia/fever Lactated Ringer's (Ringers, Lactated) 1,000 mls @ 125 mls/hr IV ASDIRECTED [facility] Last Admin: 11/15/19 09:05 Dose: 125 mls/hr Ondansetron HCl (Zofran Odt) 4 mg PO Q6H PRN PRN Reason: Nausea/Vomiting Levothyroxine 175 (Mcg) 1 each PO ACBREAKFAST [facility] Last Admin: 11/15/19 06:48 Dose: Not Given Potassium Bicarbonate (Klor-Con Ef) 25 meq PO TID [facility] Prenat Multivit/Boundary/Iron/Folic Ac ( Mtr) 1 each PO DAILY [facility] Last Admin: 11/15/19 09:08 Dose: 1 each Promethazine HCl (Phenergan) 25 mg PO Q6H PRN PRN Reason: Nausea/Vomiting Discontinued Medications Lactated Ringer's (Ringers, Lactated) 1,000 mls @ 999 mls/hr IV .BOLUS ONE Stop: 11/14/19 12:41 Last Admin: 11/14/19 12:07 Dose: 999 mls/hr Lactated Ringer's (Ringers, Lactated) 1,000 mls @ 999 mls/hr IV .BOLUS ONE Stop: 11/14/19 13:59 Last Admin: 11/14/19 13:02 Dose: 999 mls/hr Ondansetron HCl (Zofran) 8 mg IVPUSH Q8H [facility] Last Admin: 11/14/19 17:59 Dose: Not Given Ondansetron HCl (Zofran) 4 mg IVPUSH Q6H [facility] Last Admin: 11/15/19 09:09 Dose: 4 mg Potassium Bicarbonate (Klor-Con Ef) 25 meq PO DAILY [facility] Last Admin: 11/15/19 09:08 Dose: 25 meq Promethazine HCl (Phenergan) 25 mg IM ONETIME ONE Stop: 11/14/19 11:42 Last Admin: 11/14/19 11:51 Dose: 25 mg Promethazine HCl (Phenergan) 25 mg IM Q6H [facility] Last Admin: 11/14/19 17:58 Dose: Not Given Promethazine HCl (Phenergan) 25 mg IM Q6H [facility] Last Admin: 11/15/19 06:13 Dose: 25 mg - Exam General: Alert, Oriented Neck: Supple Lungs: Clear to Auscultation, Normal Respiratory Effort Cardiovascular: Regular Rate, Regular Rhythm GI/Abdominal Exam: Soft, Non-Tender Extremities: Non-Tender, No Pedal Edema Skin: Warm Neurological: No New Focal Deficit Psy/Mental Status: Alert, Normal Affect, Normal Mood Sepsis Event Note - Evaluation Sepsis Screening Result: No Definite Risk - Focused Exam Vital Signs: Vital Signs Temp Pulse Resp BP Pulse Ox 11/15/19 07:15 36.0 C L 70 16 99/44 L 96 11/15/19 04:00 36.3 C 65 17 105/81 96 11/14/19 23:30 36.6 C 70 16 108/51 L 95 Date Exam was Performed: 11/15/19 Time Exam was Performed: 09:54 - Problem List & Annotations (1) Vomiting affecting SNOMED Code(s): 50976311, 893099080 Code(s): O21.9 - VOMITING OF , UNSPECIFIED Status: Acute Current Visit: Yes - Problem List Review Problem List Initiated/Reviewed/Updated: Yes - My Orders Last 24 Hours: My Active Orders 11/14/19 10:30 Patient Status [ADT] Routine 11/14/19 10:39 Vital Signs [RC] PER UNIT ROUTINE Resuscitation Status Routine 11/14/19 15:00 Patient Status [ADT] Routine May Shower [RC] ASDIRECTED Up ad Diane [RC] ASDIRECTED Acetaminophen [Tylenol] 650 mg PO Q4H PRN DVT/VTE Prophylaxis Reflex [OM.PC] Routine 11/14/19 15:01 Intake and Output [RC] Q12H Notify Provider Vital Signs [RC] ASDIRECTED 11/14/19 15:02 Antiembolic Devices [RC] .Routine VTE/DVT Education [RC] PER UNIT ROUTINE 11/14/19 15:15 Lactated Ringers [Ringers, Lactated] 1,000 ml IV ASDIRECTED 11/15/19 07:30 Patient's Own Medication [Ptom] 1 each PO ACBREAKFAST 11/15/19 09:00 Vit/FA/Fe Fumarate/Se [ MTR] 1 each PO DAILY 11/15/19 09:46 Ondansetron [Zofran ODT] 4 mg PO Q6H PRN Promethazine [Phenergan] 25 mg PO Q6H PRN 11/15/19 14:00 Potassium Bicarbonate [Klor-Con EF] 25 meq PO TID 11/15/19 Lunch Regular Diet [DIET] - Assessment Assessment:: 34yo @ 20w6d with intractable nausea/vomiting. - Plan Plan:: 1. Nausea/vomiting: Advance diet, change to scheduled oral antiemetics 2. Hypokalemia: Decreased to 2.9 this AM, increase frequency of oral potassium replacement 3. : Continue vitamin, monitoring reassuring in triage, no concerns with cerclage 4. Hypothyroidism: Continue Levothyroxine 5. Dispo: Plan to discharge home this evening if tolerating oral intake
[2019-11-15 11:46] VITALS: BP 117/66; PULSE 65
[2019-11-15] MEDS ORDERED: Potassium Bicarbonate 25 MEQ Tab.EFF PO SCH (14:00)
--- NOTE | 2019-11-15 15:40 | PCM.DCSUM1 ---
Discharge Summary - Hospital Course Brief History: 34yo presented at 20w5d with nausea and vomiting. Received IV fluids and IM Phenergan in OB triage with subsequent vomiting. Also reports dizziness. Positive movement. Continues to have brown/blood- tinged discharge, unchanged for several weeks. Denies abdominal pain. Received IV fluids and scheduled antiemetics, along with potassium replacement for hypokalemia. Patient subsequently able to tolerate oral intake without vomiting. Dizziness improved. - Discharge Data Discharge Date: 11/15/19 Discharge Disposition: Home, Self-Care 01 Condition: Good - Referral to Home Health Primary Care Physician: Ruben Mccarthy MD - Discharge Diagnosis/Problem(s) (1) Vomiting affecting SNOMED Code(s): 36076805, [id number] ICD Code: O21.9 - VOMITING OF , UNSPECIFIED Status: Acute Current Visit: Yes - Patient Summary/Data Hospital Course: Patient admitted for observation for nausea and vomiting. Received IV fluids and scheduled antiemetics while in hospital. Transitioned to oral antiemetics on hospital day #2. Able to tolerate oral intake without vomiting. Received potassium replacement for mild hypokalemia. - Patient Instructions Diet: Usual Diet as Tolerated Activity: As Tolerated, No Lifting Over 10 Pounds Driving: May Drive Today Showering/Bathing: May Shower Notify Provider of: Nausea and/or Vomiting Other/Special Instructions: May take Phenergan every 6 hours and Zofran every 6 hours as needed for nausea. Take potassium replacement twice daily. Notify clinic if temperature >100.4, heavy vaginal bleeding, intractable nausea/ vomiting, severe pain, or any questions or concerns. - Discharge Plan *PRESCRIPTION DRUG MONITORING PROGRAM REVIEWED*: No Prescriptions/Med Rec: Ondansetron [Ondansetron ODT] 4 mg PO Q6H PRN 10 Days #30 tab.rapdis PRN Reason: Nausea Potassium Bicarbonate/Cit Ac [Klor-Con-Ef 25 mEq Tab Eff] 25 meq PO BID 10 Days #20 tablet.eff Home Medications: Home Meds Levothyroxine 200 mcg PO QAM 05/14/15 [History] No122/Iron/Folic Acid [ Multi Tablet] 1 tab PO DAILY 09/18/19 [ History] Ondansetron [Ondansetron ODT] 4 mg PO Q6H PRN 10 Days #30 tab.rapdis 11/15/19 [ Rx] Potassium Bicarbonate/Cit Ac [Klor-Con-Ef 25 mEq Tab Eff] 25 meq PO BID 10 Days #20 tablet.eff 11/15/19 [Rx] Patient Handouts: Nausea and Vomiting, Adult, [id number] Referrals: Karely Sanon MD [Physician] - 11/19/19 8:30 am - Discharge Summary/Plan Comment DC Time >30 min.: Yes - Patient Data Vitals - Most Recent: Last Vital Signs Temp 36.4 C 11/15/19 11:45 Pulse 65 11/15/19 11:45 Resp 16 11/15/19 11:45 BP 117/66 11/15/19 11:45 Pulse Ox 98 11/15/19 11:45 Weight - Most Recent: 113.852 kg I&O - Last 24 hours: Intake & Output 11/15/19 11/15/19 11/15/19 06:59 14:59 22:59 Intake Total 1311 Output Total 450 Balance 861 Lab Results - Last 24 hrs: Laboratory Results - last 24 hr 11/15/19 Range/Units 06:00 Sodium 141 (136-145) mmol/L Potassium 2.9 L (3.5-5.1) mmol/L Chloride 106 (98-107) mmol/L Carbon Dioxide 24.9 (21.0-32.0) mmol/L BUN 7 (7.0-18.0) mg/dL Creatinine 0.5 L (0.6-1.0) mg/dL Est Cr Clr Drug Dosing 144.00 mL/min Estimated GFR (MDRD) > 60.0 ml/min Glucose 82 (74-106) mg/dL Calcium 8.2 L (8.5-10.1) mg/dL Med Orders - Current: Current Medications Acetaminophen (Tylenol) 650 mg PO Q4H PRN PRN Reason: analgesia/fever Lactated Ringer's (Ringers, Lactated) 1,000 mls @ 125 mls/hr IV ASDIRECTED [facility] Last Admin: 11/15/19 09:05 Dose: 125 mls/hr Ondansetron HCl (Zofran Odt) 4 mg PO Q6H PRN PRN Reason: Nausea/Vomiting Levothyroxine 175 (Mcg) 1 each PO ACBREAKFAST [facility] Last Admin: 11/15/19 06:48 Dose: Not Given Potassium Bicarbonate (Klor-Con Ef) 25 meq PO TID [facility] Last Admin: 11/15/19 13:23 Dose: 25 meq Prenat Multivit/[place]/Iron/Folic Ac ( Mtr) 1 each PO DAILY [facility] Last Admin: 11/15/19 09:08 Dose: 1 each Promethazine HCl (Phenergan) 25 mg PO Q6H PRN PRN Reason: Nausea/Vomiting Discontinued Medications Lactated Ringer's (Ringers, Lactated) 1,000 mls @ 999 mls/hr IV .BOLUS ONE Stop: 11/14/19 12:41 Last Admin: 11/14/19 12:07 Dose: 999 mls/hr Lactated Ringer's (Ringers, Lactated) 1,000 mls @ 999 mls/hr IV .BOLUS ONE Stop: 11/14/19 13:59 Last Admin: 11/14/19 13:02 Dose: 999 mls/hr Ondansetron HCl (Zofran) 8 mg IVPUSH Q8H [facility] Last Admin: 11/14/19 17:59 Dose: Not Given Ondansetron HCl (Zofran) 4 mg IVPUSH Q6H [facility] Last Admin: 11/15/19 09:09 Dose: 4 mg Potassium Bicarbonate (Klor-Con Ef) 25 meq PO DAILY [facility] Last Admin: 11/15/19 09:08 Dose: 25 meq Promethazine HCl (Phenergan) 25 mg IM ONETIME ONE Stop: 11/14/19 11:42 Last Admin: 11/14/19 11:51 Dose: 25 mg Promethazine HCl (Phenergan) 25 mg IM Q6H [facility] Last Admin: 11/14/19 17:58 Dose: Not Given Promethazine HCl (Phenergan) 25 mg IM Q6H [facility] Last Admin: 11/15/19 06:13 Dose: 25 mg
== END 2019-11-15 16:05 | disposition home or self-care (01) ==
LOC: MW.OB 10:14 → MW.OBCHECK 10:14 → MW.OB 15:07 → MW.OBCHECK 15:07 → MW.MS 15:23
PROVIDERS: ADMIT Obstetrics & Gynecology; ATTEND Obstetrics & Gynecology
DX: O21.2 Late vomiting of pregnancy (principal); O99.282 Endocrine, nutritional and metabolic diseases complicating pregnancy, second trimester; E87.6 Hypokalemia; E03.9 Hypothyroidism, unspecified; O99.212 Obesity complicating pregnancy, second trimester; E66.9 Obesity, unspecified; Z79.890 Hormone replacement therapy; Z3A.20 20 weeks gestation of pregnancy
CPT/HCPCS: 36415; 80048; 80053; 81001; A9270; J2405; J2550; J7120

== ENCOUNTER 2020-03-04 05:29 | Inpatient (IN) | payer BC ==
[2020-03-04] MEDS ORDERED: Lactated Ringers 1,000 ML IV SCH (05:45)
[2020-03-04] MEDS ORDERED: Sodium Chloride 0.9% 10 ML Syringe FLUSH PRN (05:45)
[2020-03-04] MEDS ORDERED: Sodium Chloride 0.9% 2.5 ML Syringe FLUSH PRN (05:45)
[2020-03-04] MEDS ORDERED: Sodium Chloride 0.9% 10 ML SDV IV PRN (05:45)
[2020-03-04] MEDS ORDERED: ceFAZolin 2 GM in Premix Bag 1 BAG IV ONE (06:18)
[2020-03-04] MEDS ORDERED: Oxytocin/0.9 % Sodium Chloride 30 UNIT/500 ML BAG IV SCH (06:30)
[2020-03-04] MEDS ORDERED: Ketorolac 30 MG/ML SDV ONE (06:34)
[2020-03-04] MEDS ORDERED: Phenylephrine 1% 10 MG/ML SDV ONE (06:34)
[2020-03-04] MEDS ORDERED: Oxytocin 10 Units/1 ML SDV ONE (06:34)
[2020-03-04] MEDS ORDERED: Ondansetron 4 MG/2 ML SDV ONE (06:34)
[2020-03-04] MEDS ORDERED: Sodium Chloride 0.9% 20 ML ONE (06:35)
[2020-03-04] MEDS ORDERED: ceFAZolin 1 GM Vial ONE (06:35)
[2020-03-04] MEDS ORDERED: Morphine PF 10 MG/10 ML SDV ONE (06:40)
[2020-03-04] MEDS ORDERED: Citric Acid/Sodium Citrate Solution 30 ML Cup PO ONE (06:45)
--- NOTE | 2020-03-04 07:00 | PCM.PREANE ---
Preanesthetic Assessment - Anesthesia/Transfusion/Family Hx Anesthesia History: Prior Anesthesia Without Reaction Family History of Anesthesia Reaction: No Transfusion History: No Prior Transfusion(s) Intubation History: Unknown - Review of Systems General: No Symptoms Pulmonary: No Symptoms Cardiovascular: No Symptoms Gastrointestinal: No Symptoms Neurological: No Symptoms Other: Reports: None - Physical Assessment ASA Class: 2 Mental Status: Alert & Oriented x3 Airway Class: Mallampati = 2 Dentition: Reports: Normal Dentition Thyro-Mental Finger Breadths: 3 Mouth Opening Finger Breadths: 3 ROM/Head Extension: Full Lungs: Clear to Auscultation, Normal Respiratory Effort Cardiovascular: Regular Rate, Regular Rhythm - Lab Values: Laboratory Last Values COVID-19 ([facility]OS[facility]) NEGATIVE (NEGATIVE) 03/04/20 05:48 - Allergies Allergies/Adverse Reactions: Allergies Allergy/AdvReac Type Severity Reaction Status Date / Time No Known Allergies Allergy Verified 11/14/19 17:22 - Blood Blood Available: No - Anesthesia Plan Pre-Op Medication Ordered: None - Acknowledgements Anesthesia Type Planned: Spinal (general anesthesia back-up plan) Pt an Appropriate Candidate for the Planned Anesthesia: Yes Alternatives and Risks of Anesthesia Discussed w Pt/Guardian: Yes Pt/Guardian Understands and Agrees with Anesthesia Plan: Yes PreAnesthesia Questionnaire - Past Health History Medical/Surgical History: Denies Medical/Surgical History HEENT History: Reports: None Cardiovascular History: Reports: None Respiratory History: Reports: None Gastrointestinal History: Reports: GERD Other Gastrointestinal History: occasionally takes TUMS Genitourinary History: Reports: UTI, Recurrent Other Genitourinary History: frequent UTI when PSYCHOPAEDIC NURSE History: Reports: , Spontaneous Other OB/BYN History: cerclage in place. incompetent cervix. G1 2012 SAB. G2 2013 18wk demise. G3 2015 38wk CD. G4 2019 12wk SAB s/p D&C Musculoskeletal History: Reports: Back Pain, Chronic, Neck Pain, Chronic Neurological History: Reports: Migraines Psychiatric History: Reports: Anxiety Other Psychiatric History: has not taken any medication for anxiety for 6 months Endocrine/Metabolic History: Reports: Diabetes, Gestational, Hypothyroidism, Obesity/BMI 30+ Hematologic History: Reports: None Immunologic History: Reports: None Oncologic (Cancer) History: Reports: None Dermatologic History: Reports: Other (See Below) Other Dermatologic History: tends to get skin rashes when - Infectious Disease History Infectious Disease History: Reports: Chicken Pox - Past Surgical History Head Surgeries/Procedures: Reports: None Female Surgical History: Reports: Section, D&C, Hysterectomy, Other (See Below) Other Female Surgeries/Procedures: previous Cervical Cerclage 04/29 - HOME MEDS Home Medications: Home Meds Levothyroxine 200 mcg PO QAM 05/14/15 [History] No122/Iron/Folic Acid [ Multi Tablet] 1 tab PO DAILY 09/18/19 [History] Ondansetron [Ondansetron ODT] 4 mg PO Q6H PRN 10 Days #30 tab.rapdis 11/15/19 [Rx] Potassium Bicarbonate/Cit Ac [Klor-Con-Ef 25 mEq Tab Eff] 25 meq PO BID 10 Days #20 tablet.eff 11/15/19 [Rx] - CURRENT (IN HOUSE) MEDS Current Meds: Current Medications Oxytocin/Sodium Chloride (Oxytocin 30 Unit/500 Ml-Ns) 30 unit in 500 mls @ 250 mls/hr IV TITRATE JUANIS Lactated Ringer's (Ringers, Lactated) 1,000 mls @ 500 mls/hr IV BOLUS JUANIS Sodium Chloride (Saline Flush) 10 ml FLUSH ASDIRECTED PRN PRN Reason: Keep Vein Open Sodium Chloride (Saline Flush) 2.5 ml FLUSH ASDIRECTED PRN PRN Reason: Keep Vein Open Sodium Chloride (Normal Saline) 10 ml IV ASDIRECTED PRN PRN Reason: IV Use Discontinued Medications Cefazolin Sodium (Ancef) Confirm Administered Dose 2 gm .ROUTE .STK-MED ONE Stop: 03/04/20 06:36 Citric Acid/Sodium Citrate (Bicitra Solution) 30 ml PO ONETIME ONE Stop: 03/04/20 06:46 Cefazolin Sodium/Dextrose 2 gm (/ Premix) 50 mls @ 100 mls/hr IV ONETIME ONE Stop: 03/04/20 06:47 Sodium Chloride (Normal Saline) Confirm Administered Dose 20 mls @ as directed .ROUTE .STK-MED ONE Stop: 03/04/20 06:36 Ketorolac Tromethamine (Toradol) Confirm Administered Dose 30 mg .ROUTE .STK-MED ONE Stop: 03/04/20 06:35 Morphine Sulfate (Duramorph Pf) Confirm Administered Dose 10 mg .ROUTE .STK-MED ONE Stop: 03/04/20 06:41 Ondansetron HCl (Zofran) Confirm Administered Dose 4 mg .ROUTE .STK-MED ONE Stop: 03/04/20 06:35 Oxytocin (Pitocin) Confirm Administered Dose 20 unit .ROUTE .STK-MED ONE Stop: 03/04/20 06:35 Phenylephrine HCl (Aaron-Synephrine) Confirm Administered Dose 10 mg .ROUTE .STK- MED ONE Stop: 03/04/20 06:35
[2020-03-04] MEDS: Ketorolac 30 MG/ML SDV IVPUSH SCH ×3 (08:45→21:28)
[2020-03-04] MEDS ORDERED: Lanolin 100% Cream 7 GM Tube TOP PRN (09:04)
[2020-03-04] MEDS ORDERED: Ondansetron 4 MG/2 ML SDV IVPUSH PRN ×2 (09:04→11:04)
[2020-03-04] MEDS ORDERED: Misoprostol 200 MCG Tab RECTAL PRN (09:04)
[2020-03-04] MEDS ORDERED: Measles, Mumps & Rubella Vaccine 0.5 ML SDV SUBCUT ONE (09:04)
[2020-03-04] MEDS ORDERED: diphenhydrAMINE 50 MG/ML SDV IVPUSH PRN ×2 (09:04→11:04)
[2020-03-04] MEDS ORDERED: Tranexamic Acid 1,000 MG in Sodium Chloride 0.9% 100 ML IV PRN (09:04)
[2020-03-04] MEDS ORDERED: Oxytocin 10 Units/1 ML SDV IM PRN (09:04)
[2020-03-04] MEDS ORDERED: Bisacodyl 10 MG Supp RECTAL PRN (09:04)
[2020-03-04] MEDS ORDERED: Methylergonovine 0.2 MG/1 ML Amp IM PRN (09:04)
[2020-03-04] MEDS ORDERED: Acetaminophen/oxyCODONE 325-5 MG Tab PO PRN ×2 (09:04→11:04)
--- NOTE | 2020-03-04 09:11 | PCM.OPNOTE ---
- General Post-Op/Procedure Note Date of Surgery/Procedure: 03/04/20 Operative Procedure(s): Repeat low-transverse delivery Findings: Live male infant, footling breech presentation, Apgars 9/9, weight 3210g Normal-appearing uterus, ovaries, tubes Pre Op Diagnosis: 34yo @ 36w4d. labor. Breech presentation. History of . Declines external cephalic version & trial of labor. Cervical incompetence, s/p cerclage. Hypothyroidism Post-Op Diagnosis: 34yo @ 36w4d. labor. Breech presentation. History of . Declines external cephalic version & trial of labor. Cervical incompetence, s/p cerclage. Hypothyroidism Anesthesia Technique: Spinal Primary Surgeon: Evita Gordon Anesthesia Provider: Ashlee Baker Keno Manager: Rod Quintana Pathology: Placenta Cord gases Cord blood Fluid Replacement, Intraop: 1,200 Output, Urine Amount: 275 (clear yellow) EBL in mLs: 600 Complications: None Condition: Good Free Text/Narrative:: 2g IV Ancef given prior to incision
[2020-03-04] MEDS ORDERED: Oxytocin/Lactated Ringers 30 UNIT/500 ML BAG IV SCH (09:15)
--- NOTE | 2020-03-04 09:44 | PCM.POSTAN ---
POST ANESTHESIA ASSESSMENT - MENTAL STATUS Mental Status: Alert - RESPIRATORY Respiratory Status: Respiratory Rate WNL - CARDIOVASCULAR CV Status: Pulse Rate WNL - GASTROINTESTINAL GI Status: No Symptoms - POST OP HYDRATION Hydration Status: Adequate & Stable
[2020-03-04] MEDS: Lactated Ringers 1,000 ML IV SCH ×2 (10:38→14:57)
[2020-03-04] MEDS ORDERED: Nalbuphine 10 MG/1 ML Vial IVPUSH PRN (11:04)
[2020-03-04] MEDS ORDERED: Naloxone 0.4 MG/ML Syringe IVPUSH PRN (11:04)
[2020-03-04] MEDS ORDERED: fentaNYL 100 MCG/2 ML SDV IVPUSH PRN (11:04)
--- NOTE | 2020-03-04 11:44 | OR ---
SURGEON: Evita Gordon MD DATE OF PROCEDURE: 03/04/2020 PREOPERATIVE DIAGNOSES: 1. A 34-year-old, G5, P 1-0-3-1, at 36 weeks and 4 days' gestation. 2. labor. 3. Breech presentation. 4. History of acute section x1. 5. Declines external cephalic version and trial of labor. 6. Cervical incompetence, status post cerclage. 7. Hypothyroidism, on levothyroxine. POSTOPERATIVE DIAGNOSES: 1. A 34-year-old, G5, P 1-0-3-1, at 36 weeks and 4 days' gestation. 2. labor. 3. Breech presentation. 4. History of acute section x1. 5. Declines external cephalic version and trial of labor. 6. Cervical incompetence, status post cerclage. 7. Hypothyroidism, on levothyroxine. PRIMARY SURGEON: Evita Gordon MD ANESTHESIA: Spinal by Dr. Baker. PRESS OFFICER: Rod Quintana, medical student. PROCEDURE: Repeat low transverse delivery. IV FLUIDS: 1200 mL. URINE OUTPUT: 275 mL of clear yellow urine. ESTIMATED BLOOD LOSS: 600 mL. PATHOLOGY: Placenta, cord blood gases, cord blood. ANTIBIOTICS: 2 g of IV Ancef. FINDINGS: Live male infant in footling breech presentation. score of 9 and 9 at one and five minutes respectively. Weight 3210 g. Normal-appearing uterus, ovaries, and tubes. INDICATIONS: This is a 34-year-old, G5, P 1-0-3-1, who presented at 36 weeks and 4 days' gestation complaining of contractions. On presentation, her cervix was found to be 3 cm dilated. She was marleny every 2 to 4 minutes. Two days prior, in clinic, she had been 1 cm dilated. Due to labor, the decision was made to admit the patient to Labor and Delivery and proceed with repeat section. The was in footling breech presentation. The patient declined external cephalic version and trial of labor. The risks and benefits of the procedure were reviewed with the patient prior to surgery. DESCRIPTION OF PROCEDURE: The patient was taken to the operating room where spinal anesthesia was obtained. She was placed in a dorsal supine position with a leftward tilt. She was prepared and draped in the normal sterile fashion. A Pfannenstiel skin incision was made with a scalpel and carried through to the underlying layer of fascia with the scalpel. The fascia was incised in the midline and the incision extended laterally with curved Hernandez scissors. The superior aspect of the fascial incision was then grasped with Anai clamps, elevated, and the underlying rectus muscles dissected off bluntly and with a scalpel. In a similar fashion, the inferior aspect of the fascial incision was grasped with Anai clamps, elevated, and the underlying rectus muscles dissected off bluntly with curved Hernandez scissors. Muscles were in the midline with the hemostat and the peritoneum identified and entered bluntly. The peritoneal incision was extended with a combination of the Bovie and manual traction. A large Santo retractor was placed. Bladder flap was created in the usual manner. A low uterine hysterotomy was created. The incision was extended with manual traction. Artificial rupture of membranes occurred with clear fluid noted. The 's feet were noted to be at the incision and brought through the hysterotomy. The 's legs, hips, and body were delivered to the level of the scapulae. The infant was rotated and the left arm swept with a finger and delivered through the hysterotomy. The infant was rotated 180 degrees and the right arm swept with a finger and delivered through the hysterotomy. The infant's head was flexed using the [id number]-[id number]-[id number] maneuver and with abdominal pressure was delivered through the hysterotomy. The cord was clamped and cut, and the infant was handed off to the awaiting nurse and company laundry worker. Cord blood and cord gases were obtained. The placenta then delivered via manual traction on the cord. The uterus was cleared of all clots and debris. The uterine incision was repaired with a running lock stitch of 0 Vicryl suture. A second stitch of the same suture was used to imbricate. [id number] sutures and the Bovie were used as needed to obtain hemostasis of the hysterotomy. The gutters were cleared of clots and the uterus was returned to the abdomen. The hysterotomy was inspected and noted to be hemostatic. The Santo retractor was removed. The fascial incision was closed with a running stitch of 0 Vicryl suture. Subcutaneous tissue was reapproximated using a running stitch of 3-0 Vicryl suture. The skin was closed with 4-0 Monocryl in subcuticular fashion. All sponge, lap, and needle counts were correct. The patient and the tolerated the delivery well. [id number] / MODL /[id number] MTDD
[2020-03-04] MEDS: Docusate Sodium 100 MG Cap PO SCH (21:27)
[2020-03-05] MEDS: Ketorolac 30 MG/ML SDV IVPUSH SCH ×2 (03:41→09:22)
--- NOTE | 2020-03-05 07:52 | PCM48HPAN ---
Post Anesthesia Note - EVALUATION WITHIN 48HRS OF ANESTHETIC Vital Signs in Normal Range: Yes Patient Participated in Evaluation: Yes Respiratory Function Stable: Yes Airway Patent: Yes Cardiovascular Function Stable: Yes Hydration Status Stable: Yes Pain Control Satisfactory: Yes Nausea and Vomiting Control Satisfactory: Yes Mental Status Recovered: Yes Vital Signs: Last Vital Signs Temp 36.2 C 03/05/20 04:00 Pulse 90 03/05/20 07:00 Resp 16 03/05/20 07:00 BP 120/67 03/05/20 04:00 Pulse Ox 100 03/05/20 07:00
--- NOTE | 2020-03-05 08:18 | PCM.PNPP ---
<Rod Quintana - Last Filed: 03/05/20 08:19> - General Info Date of Service: 03/05/20 Admission Dx/Problem (Free Text): 34 year old who was admitted at 36w4d for labor with breech presentation and history of acute , cervical incompetence and hypothyroidism who declined external cephalic version and trial of labor. Subjective Update: Patient is doing well today. She reports that she was up walking down the [place] at 4 am this morning and has been able to urinate this morning without issue. She has some bleeding both vaginally and mildly from the incision site. Her pain is manageable. Has not yet had a bowel movement but has been able to pass gas. She reports her appetite has been good. Functional Status: Reports: Pain Controlled, Tolerating Diet, Ambulating, Urinating - Review of Systems General: Reports: No Symptoms HEENT: Reports: No Symptoms Pulmonary: Reports: No Symptoms Cardiovascular: Reports: No Symptoms Gastrointestinal: Reports: No Symptoms Genitourinary: Reports: No Symptoms Musculoskeletal: Reports: No Symptoms Skin: Reports: No Symptoms Neurological: Reports: No Symptoms Psychiatric: Reports: No Symptoms - General Info Date of Service: 03/05/20 - Patient Data Vital Signs - Most Recent: Last Vital Signs Temp 97.1 F 03/05/20 04:00 Pulse 90 03/05/20 07:00 Resp 16 03/05/20 07:00 BP 120/67 03/05/20 04:00 Pulse Ox 100 03/05/20 07:00 Weight - Most Recent: 117.118 kg I&O - Last 24 Hours: Intake & Output 03/04/20 03/05/20 03/05/20 22:59 06:59 14:59 Output Total 300 1100 Balance -300 -1100 Lab Results - Last 24 Hours: Laboratory Results - last 24 hr 03/04/20 03/05/20 Range/Units 07:54 04:43 Hgb 9.9 L (12.0-16.0) g/dL Hct 30.7 L (36.0-46.0) % Cord ABG pH 7.225 (7.18-7.38) Cord ABG Base Excess -4 (-10--2) Cord VBG pH 7.287 (7.25-7.45) Cord VBG Base Excess -4 (-10--2) Med Orders - Current: Current Medications Bisacodyl (Dulcolax) 10 mg RECTAL ONETIME PRN PRN Reason: Constipation Diphenhydramine HCl (Benadryl) 25 mg IVPUSH Q6H PRN PRN Reason: Itching or Nausea Diphenhydramine HCl (Benadryl) 25 mg IVPUSH Q4H PRN PRN Reason: Itching Stop: 03/05/20 11:04 Docusate Sodium (Colace) 100 mg PO BID [facility] Last Admin: 03/04/20 21:27 Dose: 100 mg Documented by: Emollient Ointment (Lansinoh Hpa) 0 gm TOP ASDIRECTED PRN PRN Reason: Sore Nipples Fentanyl (Sublimaze) 50 mcg IVPUSH Q1H PRN PRN Reason: Pain (severe 7-10) Oxytocin/Sodium Chloride (Oxytocin 30 Unit/500 Ml-Ns) 30 unit in 500 mls @ 250 mls/hr IV TITRATE [facility] Lactated Ringer's (Ringers, Lactated) 1,000 mls @ 500 mls/hr IV BOLUS JUANIS Lactated Ringer's (Ringers, Lactated) 1,000 mls @ 125 mls/hr IV ASDIRECTED [facility] Last Admin: 03/04/20 14:57 Dose: 125 mls/hr Documented by: Oxytocin/Lactated Ringer's (Pitocin In Lr 30 Units/500 Ml) 30 unit in 500 mls @ 500 mls/hr IV TITRATE [facility]; Protocol Tranexamic Acid 1,000 mg/ (Sodium Chloride) 110 mls @ 660 mls/hr IV ONETIME PRN PRN Reason: Bleeding Ibuprofen (Motrin) 800 mg PO Q8H PRN PRN Reason: mild pain or fever Ketorolac Tromethamine (Toradol) 30 mg IVPUSH Q6H [facility] Stop: 03/05/20 09:16 Last Admin: 03/05/20 03:41 Dose: 30 mg Documented by: Levothyroxine Sodium (Synthroid) 200 mcg PO QAM [facility] Methylergonovine Maleate (Methergine) 0.2 mg IM ONETIME PRN PRN Reason: Excessive Vaginal Bleeding Misoprostol (Cytotec) 1,000 mcg RECTAL ONETIME PRN PRN Reason: excessive bleeding Nalbuphine HCl (Nubain) 5 mg IVPUSH ASDIRECTED PRN PRN Reason: Itching Naloxone HCl (Narcan) 0.1 mg IVPUSH ONETIME PRN PRN Reason: Respiratory Depression Stop: 03/05/20 11:04 Ondansetron HCl (Zofran) 4 mg IVPUSH Q4H PRN PRN Reason: Nausea/Vomiting Last Admin: 03/04/20 11:56 Dose: 4 mg Documented by: Ondansetron HCl (Zofran) 4 mg IVPUSH Q6H PRN PRN Reason: Nausea Oxycodone/Acetaminophen (Percocet 325-5 Mg) 1 tab PO Q4H PRN PRN Reason: Pain (moderate 4-6) Oxycodone/Acetaminophen (Percocet 325-5 Mg) 2 tab PO Q4H PRN PRN Reason: Pain (moderate 4-6) Oxycodone/Acetaminophen (Percocet 325-5 Mg) 2 tab PO Q6H PRN PRN Reason: Pain (moderate 4-6) Oxytocin (Pitocin) 10 unit IM ASDIRECTED PRN PRN Reason: Excessive Vaginal Bleeding Sodium Chloride (Saline Flush) 10 ml FLUSH ASDIRECTED PRN PRN Reason: Keep Vein Open Sodium Chloride (Saline Flush) 2.5 ml FLUSH ASDIRECTED PRN PRN Reason: Keep Vein Open Sodium Chloride (Normal Saline) 10 ml IV ASDIRECTED PRN PRN Reason: IV Use Discontinued Medications Cefazolin Sodium (Ancef) Confirm Administered Dose 2 gm .ROUTE .STK-MED ONE Stop: 03/04/20 06:36 Citric Acid/Sodium Citrate (Bicitra Solution) 30 ml PO ONETIME ONE Stop: 03/04/20 06:46 Last Admin: 03/04/20 13:52 Dose: Not Given Documented by: Cefazolin Sodium/Dextrose 2 gm (/ Premix) 50 mls @ 100 mls/hr IV ONETIME ONE Stop: 03/04/20 06:47 Last Admin: 03/04/20 13:52 Dose: Not Given Documented by: Sodium Chloride (Normal Saline) Confirm Administered Dose 20 mls @ as directed .ROUTE .STK-MED ONE Stop: 03/04/20 06:36 Ketorolac Tromethamine (Toradol) Confirm Administered Dose 30 mg .ROUTE .STK-MED ONE Stop: 03/04/20 06:35 Measles/Mumps/Rubella Vaccine Live (M-M-R Ii Vaccine) 0.5 ml SUBCUT .ONCE ONE Stop: 03/04/20 09:05 Morphine Sulfate (Duramorph Pf) Confirm Administered Dose 10 mg .ROUTE .STK-MED ONE Stop: 03/04/20 06:41 Ondansetron HCl (Zofran) Confirm Administered Dose 4 mg .ROUTE .STK-MED ONE Stop: 03/04/20 06:35 Oxytocin (Pitocin) Confirm Administered Dose 20 unit .ROUTE .STK-MED ONE Stop: 03/04/20 06:35 Phenylephrine HCl (Aaron-Synephrine) Confirm Administered Dose 10 mg .ROUTE .STK- MED ONE Stop: 03/04/20 06:35 - Infant Interaction Infant Disposition, : [place] to Nursery (for testing) Interaction: Not Applicable Feeding: Attempted ; Nursed Fair/Poor, Bottle Fed Support Person: - Recovery Exam Fundal Tone: Firm Fundal Level: 1 Fingerbreadths Below Umbilicus Fundal Placement: Midline Lochia Amount: Small, Clots/Tissue Present Lochia Color: Rubra/Red Perineum Description: Intact, Minimal Bruising/Swelling Episiotomy/Laceration: None Bladder Status: Voiding Urinary Elimination: Voided - Exam General: Alert, Oriented HEENT: Pupils Equal, Pupils Reactive Lungs: Clear to Auscultation, Normal Respiratory Effort Cardiovascular: Regular Rate, Regular Rhythm GI/Abdominal Exam: Normal Bowel Sounds, No Organomegaly, No Distention, No Mass, Tender (to palpation) Extremities: Normal Inspection, Non-Tender, No Pedal Edema, Normal Capillary Refill Skin: Warm, Dry, Intact Wound/Incisions: Healing Well. No: Erythema Neurological: No New Focal Deficit Psy/Mental Status: Alert, Normal Affect, Normal Mood - Problem List & Annotations (1) labor in third trimester with delivery SNOMED Code(s): 15273879182025607 Code(s): O60.14X0 - LABOR THIRD TRI W DELIVERY THIRD TRI, UNS P Status: Acute Current Visit: Yes (2) Hypothyroidism SNOMED Code(s): 68951781 Code(s): E03.9 - HYPOTHYROIDISM, UNSPECIFIED Status: Acute Current Visit: Yes (3) Cervical incompetence SNOMED Code(s): 38811828 Code(s): N88.3 - INCOMPETENCE OF CERVIX UTERI Status: Acute Current Visit: Yes (4) Breech presentation SNOMED Code(s): 5827689 Code(s): O32.1XX0 - MATERNAL CARE FOR BREECH PRESENTATION, UNSP Status: Acute Current Visit: Yes (5) S/P repeat low transverse SNOMED Code(s): 263687172, 54072304, 171571653, 614463224, 951143530 Code(s): Z98.891 - HISTORY OF UTERINE SCAR FROM PREVIOUS SURGERY Status: Acute Current Visit: Yes - Problem List Review Problem List Initiated/Reviewed/Updated: Yes - Assessment Assessment:: Post op day 1 repeat low transverse with breech presentation for labor at 36w4d to a 34 year old female with a history of hypothyroidism and cervical insufficiency with cerclage removal two days prior. Apgars 9/9 - Plan Plan:: 1. GBS positive - prior to rupture of membranes 2. Rubella non-immune - rubella vaccine prior to discharge, order has been placed 3. A+ with negative antibody screen 4. Hypothyroidism - managed on levothyroxine 5. labor with breech presentation - repeat low transverse 6. Cervical insufficiency - cerclage removed 2 days prior to presenting in labor 7. as tolerated 8. care per unit routine 9. Discharge home post op day 2 if doing well, pending director strategic planning recommendation <Evita Gordon - Last Filed: 03/05/20 09:20> - Patient Data Vital Signs - Most Recent: Last Vital Signs Temp 36.2 C 03/05/20 08:00 Pulse 83 03/05/20 08:00 Resp 16 03/05/20 08:00 BP 123/68 03/05/20 08:00 Pulse Ox 97 03/05/20 08:00 I&O - Last 24 Hours: Intake & Output 03/04/20 03/05/20 03/05/20 22:59 06:59 14:59 Output Total 300 1100 Balance -300 -1100 Lab Results - Last 24 Hours: Laboratory Results - last 24 hr 03/05/20 Range/Units 04:43 Hgb 9.9 L (12.0-16.0) g/dL Hct 30.7 L (36.0-46.0) % Med Orders - Current: Current Medications Bisacodyl (Dulcolax) 10 mg RECTAL ONETIME PRN PRN Reason: Constipation Diphenhydramine HCl (Benadryl) 25 mg IVPUSH Q6H PRN PRN Reason: Itching or Nausea Diphenhydramine HCl (Benadryl) 25 mg IVPUSH Q4H PRN PRN Reason: Itching Stop: 03/05/20 11:04 Docusate Sodium (Colace) 100 mg PO BID [facility] Last Admin: 03/04/20 21:27 Dose: 100 mg Documented by: Emollient Ointment (Lansinoh Hpa) 0 gm TOP ASDIRECTED PRN PRN Reason: Sore Nipples Fentanyl (Sublimaze) 50 mcg IVPUSH Q1H PRN PRN Reason: Pain (severe 7-10) Oxytocin/Sodium Chloride (Oxytocin 30 Unit/500 Ml-Ns) 30 unit in 500 mls @ 250 mls/hr IV TITRATE [facility] Lactated Ringer's (Ringers, Lactated) 1,000 mls @ 500 mls/hr IV BOLUS JUANIS Lactated Ringer's (Ringers, Lactated) 1,000 mls @ 125 mls/hr IV ASDIRECTED [facility] Last Admin: 03/04/20 14:57 Dose: 125 mls/hr Documented by: Oxytocin/Lactated Ringer's (Pitocin In Lr 30 Units/500 Ml) 30 unit in 500 mls @ 500 mls/hr IV TITRATE [facility]; Protocol Tranexamic Acid 1,000 mg/ (Sodium Chloride) 110 mls @ 660 mls/hr IV ONETIME PRN PRN Reason: Bleeding Ibuprofen (Motrin) 800 mg PO Q8H PRN PRN Reason: mild pain or fever Levothyroxine Sodium (Synthroid) 200 mcg PO QAM [facility] Methylergonovine Maleate (Methergine) 0.2 mg IM ONETIME PRN PRN Reason: Excessive Vaginal Bleeding Misoprostol (Cytotec) 1,000 mcg RECTAL ONETIME PRN PRN Reason: excessive bleeding Nalbuphine HCl (Nubain) 5 mg IVPUSH ASDIRECTED PRN PRN Reason: Itching Naloxone HCl (Narcan) 0.1 mg IVPUSH ONETIME PRN PRN Reason: Respiratory Depression Stop: 03/05/20 11:04 Ondansetron HCl (Zofran) 4 mg IVPUSH Q4H PRN PRN Reason: Nausea/Vomiting Last Admin: 03/04/20 11:56 Dose: 4 mg Documented by: Ondansetron HCl (Zofran) 4 mg IVPUSH Q6H PRN PRN Reason: Nausea Oxycodone/Acetaminophen (Percocet 325-5 Mg) 1 tab PO Q4H PRN PRN Reason: Pain (moderate 4-6) Oxycodone/Acetaminophen (Percocet 325-5 Mg) 2 tab PO Q4H PRN PRN Reason: Pain (moderate 4-6) Oxycodone/Acetaminophen (Percocet 325-5 Mg) 2 tab PO Q6H PRN PRN Reason: Pain (moderate 4-6) Oxytocin (Pitocin) 10 unit IM ASDIRECTED PRN PRN Reason: Excessive Vaginal Bleeding Sodium Chloride (Saline Flush) 10 ml FLUSH ASDIRECTED PRN PRN Reason: Keep Vein Open Sodium Chloride (Saline Flush) 2.5 ml FLUSH ASDIRECTED PRN PRN Reason: Keep Vein Open Sodium Chloride (Normal Saline) 10 ml IV ASDIRECTED PRN PRN Reason: IV Use Discontinued Medications Cefazolin Sodium (Ancef) Confirm Administered Dose 2 gm .ROUTE .STK-MED ONE Stop: 03/04/20 06:36 Citric Acid/Sodium Citrate (Bicitra Solution) 30 ml PO ONETIME ONE Stop: 03/04/20 06:46 Last Admin: 03/04/20 13:52 Dose: Not Given Documented by: Cefazolin Sodium/Dextrose 2 gm (/ Premix) 50 mls @ 100 mls/hr IV ONETIME ONE Stop: 03/04/20 06:47 Last Admin: 03/04/20 13:52 Dose: Not Given Documented by: Sodium Chloride (Normal Saline) Confirm Administered Dose 20 mls @ as directed .ROUTE .STK-MED ONE Stop: 03/04/20 06:36 Ketorolac Tromethamine (Toradol) Confirm Administered Dose 30 mg .ROUTE .STK-MED ONE Stop: 03/04/20 06:35 Ketorolac Tromethamine (Toradol) 30 mg IVPUSH Q6H [facility] Stop: 03/05/20 09:16 Last Admin: 03/05/20 03:41 Dose: 30 mg Documented by: Measles/Mumps/Rubella Vaccine Live (M-M-R Ii Vaccine) 0.5 ml SUBCUT .ONCE ONE Stop: 03/04/20 09:05 Morphine Sulfate (Duramorph Pf) Confirm Administered Dose 10 mg .ROUTE .STK-MED ONE Stop: 03/04/20 06:41 Ondansetron HCl (Zofran) Confirm Administered Dose 4 mg .ROUTE .STK-MED ONE Stop: 03/04/20 06:35 Oxytocin (Pitocin) Confirm Administered Dose 20 unit .ROUTE .STK-MED ONE Stop: 03/04/20 06:35 Phenylephrine HCl (Aaron-Synephrine) Confirm Administered Dose 10 mg .ROUTE .STK- MED ONE Stop: 03/04/20 06:35 - Problem List & Annotations (1) S/P repeat low transverse SNOMED Code(s): 050721389, 47971427, 729595394, 139440131, 046359229 Code(s): Z98.891 - HISTORY OF UTERINE SCAR FROM PREVIOUS SURGERY Status: Acute Current Visit: Yes (2) Hypothyroidism SNOMED Code(s): 68256612 Code(s): E03.9 - HYPOTHYROIDISM, UNSPECIFIED Status: Acute Current Visit: Yes - My Orders Last 24 Hours: My Active Orders 03/04/20 09:00 Notify Provider Vital Signs [RC] PRN 03/04/20 09:04 Patient Status [ADT] Routine Ambulate [RC] PER UNIT ROUTINE Antiembolic Devices [RC] PER UNIT ROUTINE Intake and Output [RC] QSHIFT May Shower [RC] ASDIRECTED Notify Provider Intake and Out [RC] ASDIRECTED Notify Provider Vital Signs [RC] ASDIRECTED RT Incentive Spirometry [RC] Q2HWA Vital Signs [RC] PER UNIT ROUTINE Acetaminophen/oxyCODONE [Percocet 325-5 MG] 1 tab PO Q4H PRN Acetaminophen/oxyCODONE [Percocet 325-5 MG] 2 tab PO Q4H PRN Ibuprofen [Motrin] 800 mg PO Q8H PRN Lanolin [Lansinoh HPA] See Dose Instructions TOP ASDIRECTED PRN Methylergonovine [Methergine] 0.2 mg IM ONETIME PRN Ondansetron [Zofran] 4 mg IVPUSH Q4H PRN Oxytocin [Pitocin] 10 unit IM ASDIRECTED PRN Tranexamic Acid [Cyklokapron] 1,000 mg Sodium Chloride 0.9% [Normal Saline] 100 ml IV ONETIME bisacodyL [Dulcolax] 10 mg RECTAL ONETIME PRN diphenhydrAMINE [Benadryl] 25 mg IVPUSH Q6H PRN miSOPROStoL [Cytotec] 1,000 mcg RECTAL ONETIME PRN Assess Lochia [WOMSER] Per Unit Routine Assess Uterine Involution [WOMSER] Per Unit Routine Breast Pump [WOMSER] Per Unit Routine DVT/VTE Prophylaxis Reflex [OM.PC] Routine Peripheral IV Discontinue [OM.PC] Routine Sequential Compression Device [OM.PC] Per Unit Routine 03/04/20 09:05 Cooling Warming Measures [RC] ASDIRECTED Abdominal Binder [OM.PC] Per Unit Routine Heat Therapy [OM.PC] Per Unit Routine Ice Therapy [OM.PC] Per Unit Routine 03/04/20 09:06 Antiembolic Devices [RC] .Routine VTE/DVT Education [RC] PER UNIT ROUTINE 03/04/20 09:15 Lactated Ringers [Ringers, Lactated] 1,000 ml IV ASDIRECTED Oxytocin/Lactated Ringers [Pitocin in LR 30 Units/500 ML] 30 unit in 500 ml IV TITRATE 03/04/20 Lunch Regular Diet [DIET] 03/04/20 21:00 Docusate Sodium [Colace] 100 mg PO BID 03/05/20 09:00 Levothyroxine [Synthroid] 200 mcg PO QAM - Plan Plan:: I have reviewed and agree with the above. Patient and infant doing well. Plan for discharge home tomorrow if remains stable.
[2020-03-05] MEDS ORDERED: Levothyroxine 100 MCG Tab PO SCH (09:00)
[2020-03-05] MEDS: Docusate Sodium 100 MG Cap PO SCH ×2 (09:22→21:34)
[2020-03-05] MEDS: Acetaminophen/oxyCODONE 325-5 MG Tab PO PRN ×2 (16:57→21:34)
[2020-03-05] MEDS: Ibuprofen 800 MG Tab PO PRN (20:01)
[2020-03-06] MEDS: Acetaminophen/oxyCODONE 325-5 MG Tab PO PRN ×2 (03:42→07:46)
[2020-03-06 08:13] VITALS: BP 119/74; PULSE 89
--- NOTE | 2020-03-06 09:26 | PCM.PNPP ---
- General Info Date of Service: 03/06/20 Admission Dx/Problem (Free Text): 34 year old who was admitted at 36w4d for labor with breech presentation and history of acute , cervical incompetence and hypothyroidism who declined external cephalic version and trial of labor. Subjective Update: Doing well, no new concerns overnight. Pain controlled with PO medications. Ambulating and voiding without difficulty. Lochia decreasing. Has been attempting to breastfeed but has also been supplementing with formula. Plans to implement breast pumping upon discharge. - General Info Date of Service: 03/06/20 - Patient Data Vital Signs - Most Recent: Last Vital Signs Temp 97.6 F 03/06/20 07:00 Pulse 89 03/06/20 07:00 Resp 18 03/06/20 07:00 BP 119/74 03/06/20 07:00 Pulse Ox 95 03/06/20 07:00 Weight - Most Recent: 258 lb 3.2 oz Lab Results - Last 24 Hours: Laboratory Results - last 24 hr 03/04/20 Range/Units 06:50 RPR Non-Reac (Non-Reac) Med Orders - Current: Current Medications Bisacodyl (Dulcolax) 10 mg RECTAL ONETIME PRN PRN Reason: Constipation Diphenhydramine HCl (Benadryl) 25 mg IVPUSH Q6H PRN PRN Reason: Itching or Nausea Docusate Sodium (Colace) 100 mg PO BID [facility] Last Admin: 03/05/20 21:34 Dose: 100 mg Documented by: Emollient Ointment (Lansinoh Hpa) 0 gm TOP ASDIRECTED PRN PRN Reason: Sore Nipples Fentanyl (Sublimaze) 50 mcg IVPUSH Q1H PRN PRN Reason: Pain (severe 7-10) Oxytocin/Sodium Chloride (Oxytocin 30 Unit/500 Ml-Ns) 30 unit in 500 mls @ 250 mls/hr IV TITRATE [facility] Lactated Ringer's (Ringers, Lactated) 1,000 mls @ 500 mls/hr IV BOLUS JUANIS Lactated Ringer's (Ringers, Lactated) 1,000 mls @ 125 mls/hr IV ASDIRECTED [facility] Last Admin: 03/04/20 14:57 Dose: 125 mls/hr Documented by: Oxytocin/Lactated Ringer's (Pitocin In Lr 30 Units/500 Ml) 30 unit in 500 mls @ 500 mls/hr IV TITRATE [facility]; Protocol Tranexamic Acid 1,000 mg/ (Sodium Chloride) 110 mls @ 660 mls/hr IV ONETIME PRN PRN Reason: Bleeding Ibuprofen (Motrin) 800 mg PO Q8H PRN PRN Reason: mild pain or fever Last Admin: 03/05/20 20:01 Dose: 800 mg Documented by: Levothyroxine [facility] ([facility]throid) [facility] [place] Last Admin: 03/05/20 09:22 Dose: 200 mcg Documented by: Methylergonovine Maleate (Methergine) 0.2 mg IM ONETIME PRN PRN Reason: Excessive Vaginal Bleeding Misoprostol (Cytotec) 1,000 mcg RECTAL ONETIME PRN PRN Reason: excessive bleeding Nalbuphine HCl (Nubain) 5 mg IVPUSH ASDIRECTED PRN PRN Reason: Itching Ondansetron HCl (Zofran) 4 mg IVPUSH Q4H PRN PRN Reason: Nausea/Vomiting Last Admin: 03/04/20 11:56 Dose: 4 mg Documented by: Ondansetron HCl (Zofran) 4 mg IVPUSH Q6H PRN PRN Reason: Nausea Oxycodone/Acetaminophen (Percocet 325-5 Mg) 1 tab PO Q4H PRN PRN Reason: Pain (moderate 4-6) Oxycodone/Acetaminophen (Percocet 325-5 Mg) 2 tab PO Q4H PRN PRN Reason: Pain (moderate 4-6) Last Admin: 03/06/20 07:46 Dose: 2 tab Documented by: Oxycodone/Acetaminophen (Percocet 325-5 Mg) 2 tab PO Q6H PRN PRN Reason: Pain (moderate 4-6) Oxytocin (Pitocin) 10 unit IM ASDIRECTED PRN PRN Reason: Excessive Vaginal Bleeding Sodium Chloride (Saline Flush) 10 ml FLUSH ASDIRECTED PRN PRN Reason: Keep Vein Open Sodium Chloride (Saline Flush) 2.5 ml FLUSH ASDIRECTED PRN PRN Reason: Keep Vein Open Sodium Chloride (Normal Saline) 10 ml IV ASDIRECTED PRN PRN Reason: IV Use Discontinued Medications Cefazolin Sodium (Ancef) Confirm Administered Dose 2 gm .ROUTE .STK-MED ONE Stop: 03/04/20 06:36 Citric Acid/Sodium Citrate (Bicitra Solution) 30 ml PO ONETIME ONE Stop: 03/04/20 06:46 Last Admin: 03/04/20 13:52 Dose: Not Given Documented by: Diphenhydramine HCl (Benadryl) 25 mg IVPUSH Q4H PRN PRN Reason: Itching Stop: 03/05/20 11:04 Cefazolin Sodium/Dextrose 2 gm (/ Premix) 50 mls @ 100 mls/hr IV ONETIME ONE Stop: 03/04/20 06:47 Last Admin: 03/04/20 13:52 Dose: Not Given Documented by: Sodium Chloride (Normal Saline) Confirm Administered Dose 20 mls @ as directed .ROUTE .STK-MED ONE Stop: 03/04/20 06:36 Ketorolac Tromethamine (Toradol) Confirm Administered Dose 30 mg .ROUTE .STK-MED ONE Stop: 03/04/20 06:35 Ketorolac Tromethamine (Toradol) 30 mg IVPUSH Q6H [facility] Stop: 03/05/20 09:16 Last Admin: 03/05/20 09:22 Dose: 30 mg Documented by: Measles/Mumps/Rubella Vaccine Live (M-M-R Ii Vaccine) 0.5 ml SUBCUT .ONCE ONE Stop: 03/04/20 09:05 Morphine Sulfate (Duramorph Pf) Confirm Administered Dose 10 mg .ROUTE .STK-MED ONE Stop: 03/04/20 06:41 Naloxone HCl (Narcan) 0.1 mg IVPUSH ONETIME PRN PRN Reason: Respiratory Depression Stop: 03/05/20 11:04 Ondansetron HCl (Zofran) Confirm Administered Dose 4 mg .ROUTE .STK-MED ONE Stop: 03/04/20 06:35 Oxytocin (Pitocin) Confirm Administered Dose 20 unit .ROUTE .STK-MED ONE Stop: 03/04/20 06:35 Phenylephrine HCl (Aaron-Synephrine) Confirm Administered Dose 10 mg .ROUTE .STK- MED ONE Stop: 03/04/20 06:35 - Infant Interaction Disposition, : [place] in Room with Family (for testing) Feeding: Attempted ; Nursed Fair/Poor, Bottle Fed Support Person: - Recovery Exam Fundal Tone: Firm Fundal Level: 1 Fingerbreadths Below Umbilicus Fundal Placement: Midline Bladder Status: Voiding - Problem List & Annotations (1) Breech presentation SNOMED Code(s): 2325713 Code(s): O32.1XX0 - MATERNAL CARE FOR BREECH PRESENTATION, UNSP Status: Acute Current Visit: Yes Qualifiers: Fetus number: single or unspecified fetus Qualified Code(s): O32.1XX0 - Maternal care for breech presentation, not applicable or unspecified (2) Cervical incompetence SNOMED Code(s): 59600547 Code(s): N88.3 - INCOMPETENCE OF CERVIX UTERI Status: Acute Current Visit: Yes (3) Hypothyroidism SNOMED Code(s): 94776516 Code(s): E03.9 - HYPOTHYROIDISM, UNSPECIFIED Status: Acute Current Visit: Yes Qualifiers: Hypothyroidism type: acquired Qualified Code(s): E03.9 - Hypothyroidism, unspecified (4) labor in third trimester with delivery SNOMED Code(s): 95809386088378104 Code(s): O60.14X0 - LABOR THIRD TRI W DELIVERY THIRD TRI, UNSP Status: Acute Current Visit: Yes Qualifiers: Fetus number: single or unspecified fetus Qualified Code(s): O60.14X0 - labor third trimester with delivery third trimester, not applicable or unspecified (5) S/P repeat low transverse SNOMED Code(s): 035724907, 24365040, 280947643, 292849684, 976040887 Code(s): Z98.891 - HISTORY OF UTERINE SCAR FROM PREVIOUS SURGERY Status: Acute Current Visit: Yes - Problem List Review Problem List Initiated/Reviewed/Updated: Yes - Assessment Assessment:: Post op day 2 s/p repeat low transverse with breech presentation for labor at 36w4d to a 34 year old female with a history of hypothyroidism and cervical insufficiency with cerclage removal two days prior. Apgars 9/9 - Plan Plan:: Routine cares 1. GBS positive - prior to rupture of membranes 2. Rubella non-immune - rubella vaccine prior to discharge, order has been placed 3. A+ with negative antibody screen 4. Hypothyroidism - managed on levothyroxine 5. labor with breech presentation - repeat low transverse 6. Cervical insufficiency - cerclage removed 2 days prior to presenting in labor 7. and bottle feeding; plans to initiate breast pumping upon discharge Dispo: stable. Anticipate discharge today. Discharge instructions reviewed at bedside. Followup in 2 weeks for incision check and 6 weeks for visit.
[2020-03-06] MEDS: Ibuprofen 800 MG Tab PO PRN (11:42)
== END 2020-03-06 11:50 | disposition home or self-care (01) | DRG 540 ==
LOC: MW.OBCHECK 05:29 → MW.OB 05:30 → MW.OBCHECK 05:46 → MW.OB 05:46
PROVIDERS: ADMIT Obstetrics & Gynecology; ATTEND Obstetrics & Gynecology
PROC: 10D00Z1 Extraction of Products of Conception, Low, Open Approach (ICD-10-PCS; principal; 2020-03-04)
PROC: 3E0234Z Introduction of Serum, Toxoid and Vaccine into Muscle, Percutaneous Approach (ICD-10-PCS; 2020-03-04)
DX: O34.211 Maternal care for low transverse scar from previous cesarean delivery (principal); Z3A.36 36 weeks gestation of pregnancy; Z37.0 Single live birth; O60.14X0 Preterm labor third trimester with preterm delivery third trimester, not applicable or unspecified; O99.824 Streptococcus B carrier state complicating childbirth; Z20.828 Contact with and (suspected) exposure to other viral communicable diseases; O99.284 Endocrine, nutritional and metabolic diseases complicating childbirth; E03.9 Hypothyroidism, unspecified; O34.33 Maternal care for cervical incompetence, third trimester; O32.8XX0 Maternal care for other malpresentation of fetus, not applicable or unspecified; O26.893 Other specified pregnancy related conditions, third trimester; Z67.11 Type A blood, Rh negative
CPT/HCPCS: 01961; 36415; 59025; 82803; 85014; 85018; 85027; 86592; 86850; 86900; 86901; 88307; 90707; A9270-GY; J0690; J1885; J2270; J2370; J2405; J2590; J7120; U0002

== ENCOUNTER 2021-11-27 10:12 | Emergency (ER) | payer BC ==
[2021-11-27] MEDS ORDERED: Ketorolac 30 MG/ML SDV IVPUSH ONE (11:08)
[2021-11-27] MEDS ORDERED: Metoclopramide 10 MG/2 ML SDV IVPUSH ONE (11:08)
[2021-11-27] MEDS ORDERED: diphenhydrAMINE 50 MG/ML SDV IVPUSH ONE (11:08)
[2021-11-27] MEDS ORDERED: Sodium Chloride 0.9% 1,000 ML IV ONE (11:08)
[2021-11-27] MEDS ORDERED: Ondansetron 4 MG/2 ML SDV IVPUSH ONE (11:08)
[2021-11-27 12:15] LABS: CORONAVIRUS COVID-19 NAA NEGATIVE (NEGATIVE); INFLUENZA A NAA NEGATIVE (NEGATIVE); INFLUENZA B NAA NEGATIVE (NEGATIVE)
[2021-11-27 12:47] VITALS: BP 101/58; PULSE 79
== END 2021-11-27 12:48 | disposition home or self-care (01) ==
LOC: MW.ED 10:12
DX: J01.00 Acute maxillary sinusitis, unspecified (principal); R51.9 Headache, unspecified; E03.9 Hypothyroidism, unspecified; E66.9 Obesity, unspecified; Z68.41 Body mass index [BMI] 40.0-44.9, adult; Z79.899 Other long term (current) drug therapy; Z20.822 Contact with and (suspected) exposure to COVID-19
CPT/HCPCS: 0240U; 70450; 81025; 96361; 96374; 96375; 99284; J1200; J1885; J2405; J2765; J7030